=== PATIENT | male | born 1960 | race Caucasian/White ===

== ENCOUNTER → 2017-03-19 | Outpatient (CLI) | payer OTHER ==
--- NOTE | 2017-03-19 15:37 | XR ---
EXAMINATION TYPE: XR Hip Complete LT DATE OF EXAM: 03/19/2017 COMPARISON: NONE HISTORY: Contusion pain TECHNIQUE: 2 view left hip FINDINGS: There is loss of the joint space. Increased sclerosis along the acetabulum. There may be so me lateral subluxation of the humerus. This appearance may be related to the deformity of the femoral head with spurring. No acute fractures evident. IMPRESSION: 1. Advanced osteoarthritic degenerative change with loss of the joint space and sclerosis of the caleb tabulum. 2. No acute osseous abnormality evident
--- NOTE | 2017-03-19 15:38 | XR ---
EXAMINATION TYPE: XR lumbar spine 2 or 3V DATE OF EXAM: 03/19/2017 CLINICAL HISTORY: Fall, pain TECHNIQUE: Frontal, lateral, and sacral base views. COMPARISON: None FINDINGS: There 5 lumbar-type vertebral bodies. Pedicles are intact. Disc heights are preserved. Vert ebral body heights are preserved. Alignment is normal. IMPRESSION: No acute fracture or dislocation is seen in the lumbar spine.
--- NOTE | 2017-03-19 15:39 | XR ---
EXAMINATION TYPE: XR sacrum coccyx DATE OF EXAM: 03/19/2017 COMPARISON: NONE HISTORY: Fall contusion pain TECHNIQUE: Three-view sacrum and coccyx FINDINGS: Sacroiliac joints are intact. Sacrum appears intact. Coccyx appears intact. Multiple phlebo liths are evident within the lower pelvis. IMPRESSION: 1. No acute abnormality sacrum and coccyx.
== END ==
LOC: RADXRMAIN 15:00
PROVIDERS: ATTEND Emergency Medicine
DX: S30.0XXA Contusion of lower back and pelvis, initial encounter (principal)
CPT/HCPCS: 72100; 72220; 73502

== ENCOUNTER → 2017-03-26 | Outpatient (CLI) | payer OTHER ==
--- NOTE | 2017-03-26 15:08 | XR ---
EXAMINATION TYPE: XR cervical spine comp DATE OF EXAM: 03/26/2017 COMPARISON: NONE HISTORY: Pain TECHNIQUE: Four views are submitted. FINDINGS: The odontoid is intact. There are no compression deformities. The prevertebral soft tissue structur es are within normal limits. Hypertrophic and degenerative change of the spine noted. Severe changes at C3-4, C5-6 and C6-C7. Multilevel facet arthropathy. IMPRESSION: 1. Loss of the normal cervical lordosis with severe multilevel degenerative disc disease..
== END | disposition home or self-care (01) ==
LOC: RADXRMAIN 14:43
PROVIDERS: ATTEND Emergency Medicine
DX: S30.0XXD Contusion of lower back and pelvis, subsequent encounter (principal); M50.30 Other cervical disc degeneration, unspecified cervical region
CPT/HCPCS: 72050

== ENCOUNTER → 2017-07-14 | Outpatient (CLI) | payer BC ==
--- NOTE | 2017-07-14 18:30 | XR ---
EXAMINATION TYPE: XR chest 2V DATE OF EXAM: 07/14/2017 COMPARISON: NONE HISTORY: Cough, R05 TECHNIQUE: Frontal and lateral views of the chest are obtained. FINDINGS: There is no focal air space opacity, pleural effusion, or pneumothorax seen. The cardiac silhouette size is within normal limits. Bronchial wall thickening is suspected. Linear areas of incr eased attenuation likely reflects scarring in the left lower lobe. Prominent lung volume could be ind icative of underlying COPD. Postop changes are noted in the left shoulder. The osseous structures ar e intact. IMPRESSION: Correlate for bronchitis, reactive airways disease, follow-up as indicated.
== END | disposition home or self-care (01) ==
LOC: RADXRMAIN 16:34
PROVIDERS: ATTEND Physician Assistant
DX: R05 Cough (principal)
CPT/HCPCS: 71046

== ENCOUNTER → 2017-07-26 | Outpatient (CLI) | payer BC ==
--- NOTE | 2017-07-26 13:17 | XR ---
EXAMINATION TYPE: XR foot complete LT DATE OF EXAM: 07/26/2017 CLINICAL HISTORY: Pain for 2 months with no known injury. History of osteoarthritis. TECHNIQUE: Frontal, lateral, and oblique images of the left foot are obtained. COMPARISON: None FINDINGS: There is no acute fracture/dislocation evident in the left foot. The joint spaces in the left foot appear mildly narrowed at the distal interphalangeal joints with small marginal osteophytes . Very small plantar enthesophyte is noted. The overlying soft tissue appears unremarkable. IMPRESSION: There is no acute fracture or dislocation in the left foot. Mild forefoot arthropathy an d very small plantar enthesophyte/heel spur.
== END | disposition home or self-care (01) ==
LOC: RADXRMAIN 11:13
PROVIDERS: ATTEND Physician Assistant
DX: M12.9 Arthropathy, unspecified (principal); N18.3 Chronic kidney disease, stage 3 (moderate); D63.1 Anemia in chronic kidney disease

== ENCOUNTER → 2017-08-09 | Outpatient (CLI) | payer BC ==
--- NOTE | 2017-08-10 11:35 | ECHOF ---
Referral Reason:I10 Hypertension MEASUREMENTS -------- HEIGHT: 165.1 cm WEIGHT: 83.0 kg BP: 155/88 IVSd: 1.1 cm (0.6 - 1.1) LVIDd: 3.7 cm (3.9 - 5.3) LVPWd: 1.2 cm (0.6 - 1.1) IVSs: 1.7 cm LVIDs: 2.6 cm LVPWs: 1.7 cm LAESV Index (A-L): 25.02 ml/m Ao Diam: 2.9 cm (2.0 - 3.7) AV Cusp: 1.9 cm (1.5 - 2.6) LA Diam: 3.7 cm (2.7 - 3.8) MV EXCURSION: 16.312 mm (> 18.000) MV EF SLOPE: 134 mm/s (70 - 150) EPSS: 0.6 cm MV E Kai: 0.81 m/s MV DecT: 218 ms MV A Kai: 0.79 m/s MV E/A Ratio: 1.03 RAP: 5.00 mmHg RVSP: 23.88 mmHg FINDINGS -------- This was a technically good study. The left ventricular size is normal. There is borderline concentric left ventricular hypertrophy. Overall left ventricular systolic function is normal with, an EF between 55 - 60 %. The right ventricle is normal in size and function. The left atrium is normal in size. The right atrium is normal in size. The aortic valve is trileaflet, and appears structurally normal. No aortic stenosis or regurgitation. There is trace mitral regurgitation. Mild tricuspid regurgitation present. The right ventricular systolic pressure, as measured by Doppl er, is 23.88mmHg. Pulmonic valve appears structurally normal. The aortic root size is normal. Normal inferior vena cava with normal inspiratory collapse consistent with estimated right atrial pre ssure of 5 mmHg. There is a trivial pericardial effusion present. CONCLUSIONS -------- 1. This was a technically good study. 2. The left ventricular size is normal. 3. There is borderline concentric left ventricular hypertrophy. 4. Overall left ventricular systolic function is normal with, an EF between 55 - 60 %. 5. The right ventricle is normal in size and function. 6. The left atrium is normal in size. 7. The right atrium is normal in size. 8. The aortic valve is trileaflet, and appears structurally normal. No aortic stenosis or regurgitati on. 9. There is trace mitral regurgitation. 10. Mild tricuspid regurgitation present. 11. The right ventricular systolic pressure, as measured by Doppler, is 23.88mmHg. 12. Pulmonic valve appears structurally normal. 13. The aortic root size is normal. 14. Normal inferior vena cava with normal inspiratory collapse consistent with estimated right atrial pressure of 5 mmHg. 15. There is a trivial pericardial effusion present. CERTIFIED PEER SPECIALIST: Tammy Avelar RDCS
== END | disposition home or self-care (01) ==
LOC: RADECHMAIN 12:59
PROVIDERS: ATTEND Family Medicine
DX: I07.1 Rheumatic tricuspid insufficiency (principal); I31.3 Pericardial effusion (noninflammatory); I10 Essential (primary) hypertension
CPT/HCPCS: 93306

== ENCOUNTER 2017-08-24 07:56 | Day surgery (SDC) | payer BC ==
[2017-08-23 11:39] VITALS: BMI 31.1
[~2017-08-24 07:56] MED LIST: LACTATED RINGERS 1,000 ML IV SCH; LIDOCAINE 1% 20 ML VIAL (10MG/ML) FOR IV START INTRADERMA PRN; MIDAZOLAM 2 MG/2 ML VIAL IV PRN
[2017-08-24 09:12] VITALS: TEMP 98
[2017-08-24] MEDS ORDERED: PROPOFOL 10 MG/ML 20 ML VIAL IV ONE (09:22)
[2017-08-24] MEDS ORDERED: LIDOCAINE 1% INJ 10MG/ML (20 ML MDV) ONE (09:22)
[2017-08-24] MEDS ORDERED: GLYCOPYRROLATE 0.2 MG/ML 2 ML VIAL ONE (09:22)
--- NOTE | 2017-08-24 09:51 | P.PCN ---
Date of Procedure: 08/24/17 Preoperative Diagnosis: Blood per rectum, abdominal pain Postoperative Diagnosis: Internal hemorrhoids, external hemorrhoids Procedure(s) Performed: Colonoscopy Anesthesia: MAC Surgeon: Renate Sierra Estimated Blood Loss (ml): 0 IV fluids (ml): 300 Pathology: none sent Condition: stable Disposition: PACU Indications for Procedure: Red blood per rectum, abdominal pain Operative Findings: Internal/external hemorrhoids Description of Procedure: Patient was taken to the endoscopy suite and following sedation he was placed in the left lateral decubitus position. Prior to the colonoscopy and EGD was performed. After the patient was placed in the left lateral decubitus position a rectal exam was performed. Patient was noted to have an external right lateral hemorrhoidal complex. No masses good sphincter tone. Colonoscope was passed through the anus into the rectum. Was passed through the sigmoid colon up to the splenic flexure. Was passed through the transverse colon hepatic flexure right colon down to the area of the cecum. Circumferential observation of the mucosa did not reveal any lesions of concern in the cecum or right colon. No lesions of concern in the transverse colon. No lesions of concern in the left colon beginning of some diverticuli in the sigmoid colon. Scope was brought down to the rectum where it was retroflexed internal hemorrhoids identified. Impression/plan: 1. Beginning of diverticuli 2. Internal/external hemorrhoids Plan: 1. Conservative management of diverticuli 2. Conservative management of hemorrhoids 3. Repeat scope 7-10 years, recommended yearly rectal exam with Hemoccult testing and if any symptoms or changes repeat colonoscopy sooner
--- NOTE | 2017-08-24 09:53 | P.DS ---
Providers Attending physician: Ryan Maya Primary care physician: Stated None Plan - Discharge Summary New Discharge Prescriptions: No Action Wendell-3 Fatty Acids [Wendell-3] 1,000 mg PO DAILY Cholecalciferol [Vitamin D3] 1,000 unit PO DAILY Atorvastatin [Lipitor] 20 mg PO HS Tadalafil [Cialis] 5 mg PO DAILY Citalopram Hydrobromide [Citalopram HBr] 20 mg PO QAM traZODone HCL 50 mg PO HS Wendell Red 500 mg PO DAILY Albuterol Sulfate [Proair Hfa] 1 - 2 puff INHALATION Q6HR PRN PRN Reason: sob Discharge Medication List Atorvastatin [Lipitor] 20 mg PO HS 03/04/16 [History] Cholecalciferol [Vitamin D3] 1,000 unit PO DAILY 03/04/16 [History] Wendell-3 Fatty Acids [Wendell-3] 1,000 mg PO DAILY 03/04/16 [History] Albuterol Sulfate [Proair Hfa] 1 - 2 puff INHALATION Q6HR PRN 08/23/17 [History] Citalopram Hydrobromide [Citalopram HBr] 20 mg PO QAM 08/23/17 [History] Wendell Red 500 mg PO DAILY 08/23/17 [History] Tadalafil [Cialis] 5 mg PO DAILY 08/23/17 [History] traZODone HCL 50 mg PO HS 08/23/17 [History] Follow up Appointment(s)/Referral(s): Renate Sierra MD [STAFF PHYSICIAN] - 1 Week Activity/Diet/Wound Care/Special Instructions: Do not drive today Discharge Disposition: HOME SELF-CARE
[2017-08-24 10:07] VITALS: BP 136/83; PULSE 76; RESP 16
--- NOTE | 2017-08-24 11:40 | P.PCN ---
Date of Procedure: 08/24/17 Procedure(s) Performed: Procedure: Esophagogastroduodenoscopy and biopsy. Preoperative diagnosis: Epigastric pain and rectal bleeding. Postoperative diagnosis: 1. Small sliding hiatal hernia with low-grade distal esophagitis. 2. Mild gastritis and duodenitis. 3. Biopsies obtained from the antrum and esophagus. Preparation sedation: Was provided by anesthesia. Brief clinical history: The patient is a 57-year-old male who was scheduled for further evaluation of epigastric pain and rectal bleeding. His colonoscopy will be performed by Dr. Richie Rivera to follow this examination of his upper GI tract. He has been experiencing epigastric pain and reported rectal bleeding as well. Procedure: With the patient on his left lateral decubitus position and after informed consent and adequate sedation, I passed the Olympus-GIF 160 video upper endoscope through the cricopharyngeus down the esophagus. GE junction was around 41 cm from the incisors and there was a small sliding hiatal hernia. The distal esophagus showed minimal erythema but no obvious erosions. There were no ulcers, strictures or Moncada's esophagus. The endoscope was then passed into the stomach which was insufflated with air and inspected in detail including the retroflex view in the cardia. There was some mottling and erythema in the antrum but no ulcers or erosions. Pyloric channel did not show any ulcers. Duodenal bulb showed minimal erythema and minimal friability but no ulcers or erosions. Post bulbar area and descending duodenum appeared within normal limits. I obtained biopsies from the antrum and esophagus then the endoscope was withdrawn. The patient tolerated the procedure well. Plan: We will await pathology results. Further plans will be made based on his course and the findings on his colonoscopy later today.
== END 2017-08-24 10:23 | disposition home or self-care (01) ==
LOC: ORWHC2ENDO 07:56
DX: K29.50 Unspecified chronic gastritis without bleeding (principal); K44.9 Diaphragmatic hernia without obstruction or gangrene; K64.4 Residual hemorrhoidal skin tags; K64.8 Other hemorrhoids; Z86.010 Personal history of colon polyps; K20.9 Esophagitis, unspecified; K29.80 Duodenitis without bleeding; E78.5 Hyperlipidemia, unspecified; G47.33 Obstructive sleep apnea (adult) (pediatric); J42 Unspecified chronic bronchitis; Z79.899 Other long term (current) drug therapy; Z88.8 Allergy status to other drugs, medicaments and biological substances
CPT/HCPCS: 88305; 45378; 43239; J2001; J2704

== ENCOUNTER → 2017-08-27 | Outpatient (CLI) | payer BC ==
--- NOTE | 2017-08-27 08:18 | US ---
EXAMINATION TYPE: US gallbladder DATE OF EXAM: 08/27/2017 COMPARISON: NONE CLINICAL HISTORY: R10.9 Abdominal pain. EXAM MEASUREMENTS: Liver Length: 16.2 cm Gallbladder Wall: 0.1 cm CBD: 0.4 cm Right Kidney: 10.8 x 5.1 x 5.1 cm Pancreas: Obscured by bowel gas Liver: upper limits of normal in size, left lobe cyst measuring 1.3 x 1.1 x 1.1cm Gallbladder: wnl Evidence for sonographic Reed's sign: no CBD: wnl Right Kidney: No hydronephrosis or masses seen Pancreas is obscured by overlying bowel gas. There may be trace ascites near superior Paddock margin and intrahepatic portion of IVC on initial images. Visualized liver is slightly heterogeneous. Techno logist collins 1.3 cm simple appearing thin-walled cyst left hepatic dome. IMPRESSION: No gallstones or ultrasound evidence for acute cholecystitis.
== END ==
LOC: RADUSWWP 06:50
PROVIDERS: ATTEND Surgery
DX: R10.9 Unspecified abdominal pain (principal)
CPT/HCPCS: 76705

== ENCOUNTER 2017-11-01 11:45 | Emergency (ER) | payer BC, OTHER ==
--- NOTE | 2017-11-01 13:43 | ED ---
General Adult HPI - General Chief complaint: Extremity Injury, Upper Stated complaint: RT ARM PAIN AND BRUISING Time Seen by Provider: 11/01/17 12:37 Source: patient, RN notes reviewed Mode of arrival: ambulatory Limitations: no limitations - History of Present Illness Initial comments: 57-year-old male presents to the emergency department for a chief complaint of right upper extremity pain times one month. Patient states he has had shoulder pain on and off for about one month. Patient states that about 3 days ago he was playing a game where he was tossing a beanbag underhand and had a releasing sensation in his right upper arm. Patient states that since that time the right arm has bruised. Patient states the pain has actually resolved in his shoulder since that time. Patient states his biceps muscle seems prominent. Patient denies any other injuries or falls.Patient has no other complaints at this time including shortness of breath, chest pain, abdominal pain, nausea or vomiting, headache, or visual changes. - Related Data Home Medications Medication Instructions Recorded Confirmed Cholecalciferol [Vitamin D3] 5,000 unit PO DAILY 03/04/16 11/01/17 [place]-3 Fatty Acids [[place]-3] 1,000 mg PO DAILY 03/04/16 11/01/17 Citalopram Hydrobromide 20 mg PO QAM 08/23/17 11/01/17 [Citalopram HBr] Tadalafil [Cialis] 5 mg PO DAILY 08/23/17 11/01/17 traZODone HCL 50 mg PO HS 08/23/17 11/01/17 Vitamin B Complex 1 cap PO DAILY 11/01/17 11/01/17 Previous Rx's Medication Instructions Recorded Ibuprofen [Motrin] 600 mg PO Q6HR PRN #20 tab 11/01/17 Allergies Allergy/AdvReac Type Severity Reaction Status Date / Time pseudoephedrine Allergy nervousness Verified 11/01/17 12:41 Review of Systems ROS Statement: Those systems with pertinent positive or pertinent negative responses have been documented in the HPI. ROS Other: All systems not noted in ROS Statement are negative. Past Medical History Past Medical History: GERD/Reflux, Hyperlipidemia, Sleep Apnea/CPAP/BIPAP Additional Past Medical History / Comment(s): chronic cough after eating, stabbing pain in abdomen with occas bright red bleeding on outer stools,uses cpap,skin irritation to groin,fungal infection to toenail History of Any Multi-Drug Resistant Organisms: None Reported Past Surgical History: Orthopedic Surgery Additional Past Surgical History / Comment(s): pin lt shoulder Past Anesthesia/Blood Transfusion Reactions: No Reported Reaction Past Psychological History: No Psychological Hx Reported Smoking Status: Never smoker - Past Family History Mother Family Medical History: No Reported History General Exam Limitations: no limitations General appearance: alert, in no apparent distress Head exam: Present: atraumatic, normocephalic, normal inspection Eye exam: Present: normal appearance, PERRL, EOMI. Absent: scleral icterus, conjunctival injection, periorbital swelling ENT exam: Present: normal exam, mucous membranes moist Neck exam: Present: normal inspection, full ROM. Absent: tenderness, meningismus, lymphadenopathy Respiratory exam: Present: normal lung sounds bilaterally. Absent: respiratory distress, wheezes, rales, rhonchi, stridor Cardiovascular Exam: Present: regular rate, normal rhythm, normal heart sounds. Absent: systolic murmur, diastolic murmur, rubs, gallop, clicks Extremities exam: Present: full ROM (Patient has full flexion and extension of the right elbow. Patient has full abduction and flexion of the right shoulder. ), tenderness (Patient has tenderness to the medial bicep area of the right upper extremity. No tenderness in the right shoulder or right elbow. No tenderness to the R AC joint. No tenderness in the wrist or hand.), normal capillary refill (Refill less than 2 seconds and pedal pulse 2+ in the right upper extremity.), joint swelling (Patient does have significant ecchymosis noted on the right biceps area extending down into the forearm. Patient does have prominence of the right bicep.), other (Sensation intact in the right upper extremity.) Course Vital Signs 11/01/17 12:38 Temperature 97.9 F Pulse Rate 79 Respiratory 18 Rate Blood Pressure 155/93 O2 Sat by Pulse 97 Oximetry Medical Decision Making - Medical Decision Making 57-year-old male presents to the emergency department for a chief complaint of right upper extremity pain times one month. Patient has had shoulder pain on and off for the past month. Patient was tossing a beanbag 3 days ago when he felt a release in his right upper arm. Patient states the pain is actually improved in his shoulder but he has had increasing bruising down the right arm. Patient is concerned for a tendon rupture. On exam patient does have a prominent biceps muscle. Neurovascular intact in the right upper extremity. Mild tenderness to the right bicep area. No tenderness in the right shoulder. Patient has full range of motion of the elbow and shoulder in the right upper extremity. Right upper extremity ultrasound negative for DVT. No suspicious hematoma evident. X-ray of the right shoulder shows no acute fractures evident. The acromioclavicular junction is somewhat widened on 1 image. Acromioclavicular joint separation could be considered. No depression of the distal acromion is evident in relation to the clavicle. Patient was put in an arm sling. He will follow up with orthopedics for possible AC joint separation as well as possible biceps tendon rupture. He will take Motrin for pain. He will return to the emergency department if he has any worsening symptoms. Disposition Clinical Impression: Arm pain, right, Acromioclavicular joint separation Disposition: HOME SELF-CARE Condition: Good Instructions: Tendon Rupture (ED), Shoulder Pain (ED) Additional Instructions: Please use arm sling until you see orthopedics. Please take Motrin for pain. Make sure to do range of motion exercises with the right shoulder so that it does not freeze up. Follow-up with orthopedics in one to 2 days for possible acromioclavicular joint separation as well as possible eye sepsis tendon rupture. Return to the emergency department if you've any worsening symptoms. Prescriptions: Ibuprofen [Motrin] 600 mg PO Q6HR PRN #20 tab PRN Reason: Pain Is patient prescribed a controlled substance at d/c from ED?: No Referrals: Ernst Quiroz MD [Primary Care Provider] - 1-2 days Bijan Reed MD [STAFF PHYSICIAN] - 1-2 days Time of Disposition: 14:16
--- NOTE | 2017-11-01 13:48 | US ---
EXAMINATION TYPE: US venous doppler duplex UE RT DATE OF EXAM: 11/01/2017 COMPARISON: NONE CLINICAL HISTORY: r/o clot, poss tendon rupture. Right upper arm bruising . SIDE PERFORMED: right Right Arm: Negative for DVT IMPRESSION: 1. Right upper extremity ultrasound negative for deep venous thrombosis. 2. No suspicious hematoma evident.
--- NOTE | 2017-11-01 13:58 | XR ---
EXAMINATION TYPE: XR shoulder complete RT DATE OF EXAM: 11/01/2017 COMPARISON: NONE HISTORY: Pain TECHNIQUE: Shoulder examined in 3 FINDINGS: The humeral head articulates with the glenoid. The acromioclavicular junction is somewhat widened on one image compared to the second image there is a 1.3 cm. Acromioclavicular joint separation could be considered. No depression of the distal acromi on is evident in relation to the clavicle. No acute fractures or dislocations are evident. A follow up study can be performed 7-10 days from acute trauma for continued pain. IMPRESSION: 1. No acute fractures evident. 2. Clinical consideration for acromioclavicular joint separation is recommended.
[2017-11-01 14:25] VITALS: BP 138/70; PULSE 72; RESP 16; TEMP 98.7
== END 2017-11-01 14:24 | disposition home or self-care (01) ==
LOC: EC 11:45
DX: S43.101A Unspecified dislocation of right acromioclavicular joint, initial encounter (principal); G47.30 Sleep apnea, unspecified; Z99.89 Dependence on other enabling machines and devices; Z79.899 Other long term (current) drug therapy; Z88.8 Allergy status to other drugs, medicaments and biological substances; X50.9XXA Other and unspecified overexertion or strenuous movements or postures, initial encounter; Y92.89 Other specified places as the place of occurrence of the external cause
CPT/HCPCS: 99284

== ENCOUNTER → 2018-06-01 | Outpatient (CLI) | payer OTHER ==
--- NOTE | 2018-06-01 10:00 | XR ---
EXAMINATION TYPE: XR lumbar spine 2 or 3V DATE OF EXAM: 06/01/2018 CLINICAL HISTORY: Pain TECHNIQUE: Three views of the lumbar spine are submitted. COMPARISON: 03/19/2017 FINDINGS: There are 5 lumbar type vertebral bodies identified. The lumbar spine shows satisfactory alignment w ithout evidence of acute fracture or dislocation. Vertebral body heights are within normal limits. Mild degenerative disc space narrowing and spondylosis. Mild facet joint arthropathy detected. The o verlying soft tissue appears unremarkable. IMPRESSION: No acute fracture or dislocation is seen in the lumbar spine. ICD 10 NO FRACTURE, INITIAL EVALUATION
--- NOTE | 2018-06-01 10:11 | XR ---
EXAMINATION TYPE: XR Hip Bilateral Complete DATE OF EXAM: 06/01/2018 CLINICAL HISTORY: pain TECHNIQUE: AP and frogleg views of the bilateral hips are obtained. COMPARISON: None. FINDINGS: There is no acute fracture/dislocation evident. [id number] joint space narrowing rig ht hip joint. Severe degenerative narrowing left hip joint space. Underlying subchondral sclerosis an d cystic change. Spur formation noted. The overlying soft tissue appears unremarkable. IMPRESSION: 1. There is no acute fracture or dislocation. ICD 10 NO FRACTURE, INITIAL EVALUATION
== END | disposition home or self-care (01) ==
LOC: RADXRMAIN 08:38
PROVIDERS: ATTEND Family Medicine
DX: M54.32 Sciatica, left side (principal); M25.552 Pain in left hip
CPT/HCPCS: 72100; 73521

== ENCOUNTER → 2018-07-21 | Outpatient (CLI) | payer OTHER ==
--- NOTE | 2018-07-21 10:45 | XR ---
EXAMINATION TYPE: XR knee complete bilateral DATE OF EXAM: 07/21/2018 CLINICAL HISTORY: Bilateral knee pain. TECHNIQUE: Three views of the bilateral knees are obtained. COMPARISON: None. FINDINGS: There is no acute fracture/dislocation evident in either knee. Both knees show lateral tib iofemoral compartment narrowing mild to moderate slightly more prominent in the left knee. There is r elative preservation of medial tibiofemoral compartments bilaterally. There is mild patellofemoral co mpartment joint space loss and spurring bilaterally left slightly worse than right. Overlying soft ti ssue is unremarkable bilaterally. IMPRESSION: As above, left greater than right mild degenerative changes.
== END | disposition home or self-care (01) ==
LOC: RADXRMAIN 10:13
PROVIDERS: ATTEND Family Medicine
DX: M17.0 Bilateral primary osteoarthritis of knee (principal)

== ENCOUNTER → 2019-03-10 | Outpatient (CLI) | payer OTHER ==
[2019-03-10 15:33] LABS: ALT 57 U/L (21-72); AST 37 U/L (17-59); African American GFR (CKD) >90 (>60 ml/min/1.73 sqM); Alkaline Phosphatase 94 U/L (38-126); Anion Gap 10 mmol/L; Blood Urea Nitrogen 15 mg/dL (9-20); Calcium 10.4 mg/dL (8.4-10.2); Carbon Dioxide 25 mmol/L (22-30); Chloride 105 mmol/L (98-107); Glucose 91 mg/dL (74-99); Sodium 140 mmol/L (137-145); Total Bilirubin 0.8 mg/dL (0.2-1.3); Total Protein 8.1 g/dL (6.3-8.2)
[2019-03-10 15:34] LABS: Appearance,Urine Clear (Clear); Bilirubin,Urine Negative (Negative); Blood,Urine Negative (Negative); Color,Urine Yellow; Glucose,Urine (UA) Negative (Negative); Ketones,Urine Negative (Negative); Leukocyte Esterase,Urine Negative (Negative); Nitrite,Urine Negative (Negative); PH, Urine 5.5 (5.0-8.0); Protein,Urine Negative (Negative); Specific Gravity,Urine 1.017 (1.001-1.035); Urobilinogen,Urine <2.0 mg/dL (<2.0)
[2019-03-10 15:36] LABS: Basophils % (A) 0 %; Eosinophils # (A) 0.1 k/uL (0-0.7); Eosinophils % (A) 1 %; HCT 43.9 % (39.0-53.0); HGB 15.2 gm/dL (13.0-17.5); Lymphocytes # (A) 2.4 k/uL (1.0-4.8); Lymphocytes % (A) 25 %; MCH 28.3 pg (25.0-35.0); MCHC 34.7 g/dL (31.0-37.0); MCV 81.5 fL (80.0-100.0); Mean Platelet Volume 6.4; Monocytes # (A) 0.6 k/uL (0-1.0); Monocytes % (A) 6 %; Neutrophils # (A) 6.4 k/uL (1.3-7.7); Neutrophils % (A) 66 %; Platelet Count 316 k/uL (150-450); RBC 5.39 m/uL (4.30-5.90); RDW 13.6 % (11.5-15.5); WBC 9.6 k/uL (3.8-10.6)
[2019-03-10 15:47] LABS: INR 0.9 (<1.2); Partial Thromboplastin Time 25.3 sec (22.0-30.0); Prothrombin Time 9.8 sec (9.0-12.0)
== END | disposition home or self-care (01) ==
LOC: LABPAT 14:20
PROVIDERS: ATTEND Orthopaedic Surgery
DX: Z01.812 Encounter for preprocedural laboratory examination (principal)
CPT/HCPCS: 36415; 80053; 81003; 85025; 85610; 85730; 87070

== ENCOUNTER → 2019-03-10 | Outpatient (CLI) | payer OTHER ==
[2019-03-10 23:19] LABS: Chol/HDL Ratio 6.15; LDL Cholesterol,Calculated 154.2 mg/dL (0.0-131.0); VLDL Calculation 46.8 mg/dL (5.00-40.00)
[2019-03-10 23:28] LABS: T4, Free (Free Thyroxine) 1.1 ng/dL (0.80-1.80)
== END | disposition home or self-care (01) ==
LOC: LABWHC1 14:23
PROVIDERS: ATTEND Family Medicine
DX: I10 Essential (primary) hypertension (principal)
CPT/HCPCS: 36415; 80061; 84439; 84443

== ENCOUNTER 2019-03-28 05:33 | Inpatient (IN) | payer OTHER ==
[2019-03-24 08:24] VITALS: BMI 33.3
[~2019-03-28 05:33] MED LIST changes: +ACETAMINOPHEN TAB 500 MG TAB PO ONE; +DEXAMETHASONE SOD PHOSPHATE 10 MG/ML 1 ML VIAL IV ONE; +GABAPENTIN 300 MG CAP PO ONE; +HYDROmorphone 0.5 MG/0.5 ML SYRINGE IVP PRN; -LACTATED RINGERS 1,000 ML IV SCH; -LIDOCAINE 1% 20 ML VIAL (10MG/ML) FOR IV START INTRADERMA PRN; +MELOXICAM 7.5 MG TAB PO ONE; +ONDANSETRON 4 MG/2 ML VIAL IVP ONE; +SCOPOLAMINE 1.5MG/72HR PATCH TRANSDERM ONE; +TRANEXAMIC ACID 1,000 MG in SODIUM CHLORIDE 0.9% 100 ML IVPB ONE
[2019-03-28] MEDS ORDERED: ROPIVACAINE 246.25 MG, EPINEPHrine 0.5 MG, KETOROLAC 30 MG, cloNIDine HCL/PF 80 MCG, WA... MISCELLANE ONE ×5 (06:00)
[2019-03-28] MEDS ORDERED: LIDOCAINE 1% 20 ML VIAL (10MG/ML) FOR IV START INTRADERMA ONE (06:30)
[2019-03-28] MEDS: LACTATED RINGERS 1,000 ML IV SCH (06:35)
[2019-03-28] MEDS ORDERED: MIDAZOLAM 2 MG/2 ML VIAL ONE (06:55)
[2019-03-28] MEDS ORDERED: HEPARIN SODIUM,PORCINE 10,000 UNIT/ML 1 ML VIAL ONE (06:55)
[2019-03-28] MEDS ORDERED: SODIUM CHLORIDE 0.9% 100 ML BAG ONE (06:55)
[2019-03-28] MEDS ORDERED: fentaNYL (PF) 50 MCG/ML 2 ML AMP ONE (06:55)
[2019-03-28] MEDS ORDERED: LACTATED RINGERS 1,000 ML BAG IV ONE (06:55)
[2019-03-28] MEDS ORDERED: TRANEXAMIC ACID 1,000 MG/10 ML VIAL ONE (06:55)
[2019-03-28] MEDS ORDERED: LIDOCAINE 1% INJ 10MG/ML (20 ML MDV) ONE (06:55)
[2019-03-28] MEDS ORDERED: PROPOFOL 10 MG/ML 20 ML VIAL IV ONE (06:55)
[2019-03-28] MEDS ORDERED: PHENYLEPHRINE-0.9% NACL SYG 1 MG/10 ML SYRINGE ONE (06:55)
[2019-03-28] MEDS ORDERED: ceFAZolin 3,000 MG in SODIUM CHLORIDE 0.9% IRRIGATIO 3,000 ML IRRIGATION ONE (07:00)
[2019-03-28] MEDS ORDERED: HYDROmorphone 0.5 MG/0.5 ML SYRINGE IVP PRN ×2 (07:02)
[2019-03-28] MEDS ORDERED: ONDANSETRON 4 MG/2 ML VIAL IVP PRN (07:02)
[2019-03-28] MEDS ORDERED: MAGNESIUM HYDROXIDE 2,400 MG/10 ML CUP PO PRN (07:02)
[2019-03-28] MEDS ORDERED: hydrOXYzine PAMOATE 25 MG CAP PO PRN (07:02)
[2019-03-28] MEDS ORDERED: DIAZEPAM 5 MG TAB PO PRN (07:02)
[2019-03-28] MEDS ORDERED: HYDROcodone/APAP 5-325MG 1 EACH TAB PO PRN ×2 (07:02)
[2019-03-28] MEDS ORDERED: NALOXONE 0.4 MG/ML 1 ML VIAL IV PRN (07:02)
[2019-03-28] MEDS ORDERED: HYDROmorphone 1 MG/ML 1 ML SYRINGE IVP PRN (07:02)
[2019-03-28] MEDS ORDERED: LACTATED RINGERS 1,000 ML IV ONE (08:22)
--- NOTE | 2019-03-28 08:33 | P.OP ---
Date of Procedure: 03/28/19 Preoperative Diagnosis: Severe osteoarthritis left hip Postoperative Diagnosis: Severe osteoarthritis left hip Procedure(s) Performed: Left total hip arthroplasty with a direct anterior approach Implants: Gallardo and nephew Polarstem size 5 standard Gallardo [employer] Nephew R3, 3 hole acetabular shell, 52 mm Gallardo [employer] Nephew reflection 6.5 mm cancellus screw, 20 mm 2 [employer]ardo [employer] Nephew R3, XLPE 20 acetabular liner Gallardo [employer] Nephew Oxinium femoral head 36 m, +4 All components were press-fit. The articulation is Oxinium on polyethylene. Anesthesia: spinal Surgeon: Ryan Bourne String Studies Director #1: Nora Ordoñez Estimated Blood Loss (ml): 150 (64 mL returned with Cell Saver) Pathology: other (Femoral head) Condition: stable Disposition: PACU Indications for Procedure: After failure of conservative treatment we discussed the surgical and nonsurgical treatment options at length. Patient wishes to proceed with a total hip arthroplasty with a direct anterior approach. Complications specific to this procedure were discussed at length, including but not limited to infection, leg length discrepancy, dislocation, and nerve injury. Patient is aware of all these complications and informed consent was obtained Operative Findings: The operative findings are consistent with severe osteoarthritis the left hip Description of Procedure: Patient was seen and evaluated in the preoperative area, consent was reviewed, and the surgical site was marked with a skin marker. Patient was then brought to the operating room and given prophylactic antibiotics intravenously. 1 g of Tranexamic acid was also given. A spinal anesthetic was administered by the anesthesia department. The patient was then placed on the [place] table with the bony prominences well-padded. The hip area was then prepped and draped in usual sterile fashion. A universal timeout was then performed, which confirmed the patient's name, surgical site, ALLERGIES, and procedure being performed. Next the incision site was located at 1 cm distal and 1 cm lateral to the anterior superior iliac spine. The skin and subcutaneous tissues were sharply incised. Incision was carefully dissected down to the fascia overlying the tensor fascia rama muscle. This fascia was then incised in line with the incision. Next, using blunt finger dissection, the tensor fascia rama muscle was dissected off its investing fascia. The muscle was then carefully retracted laterally with a cobra retractor over the lateral neck of the femur. Next, the circumflex vessels were identified and cauterized using the AquaMantis device. The anterior hip capsule was then exposed. The capsule was then opened and an inverted T fashion. Cobra retractors were then placed intracapsularly. The proximal femur was then visualized. The femoral neck was then osteotomized appropriate level above the lesser trochanter. Small amount of traction was placed with the Dallas table. A small wedge of bone was then removed from the remaining femoral head. Next, using a corkscrew femoral head was easily removed from the acetabulum. On gross visual inspection, the femoral head had complete loss of articular cartilage in multiple periarticular osteophytes. Attention was then turned to the acetabulum. the acetabulum was exposed and any remaining labrum was excised. Sequential reaming of the acetabulum was performed using fluoroscopic guidance. When the appropriate size was reached, a trial was then placed. The position and fit of the trial was checked with fluoroscopy. The trial was then removed. Then, using fluoroscopic guidance, the final implant was impacted at 20 of anteversion and 40 of abduction, and fully seated in the acetabulum. 2 screws were then placed in the acetabulum. Again fluoroscopy was used to check position of the screws. Next, the liner was then impacted, with a 20 elevated liner located in the anterior superior quadrant. Component locking was confirmed. Attention was then directed to the femur. With the aid of the Dallas table, the femur was externally rotated to approximately 130, extended, and abducted under the opposite leg. A side hook was then placed under the proximal femur, and the side hook elevator was used to elevate the proximal femur. Retractors were then placed. A capsular release was performed, as well as a release of the conjoined tendon, which afforded excellent visualization of the proximal femur. Next, a box osteotome was used to lateralize the proximal femur. A presser hand was then used to locate the femoral canal. Sequential broaching was then performed with appropriate size which afforded excellent fixation in the proximal femur. A trial was then placed with appropriate head and neck, and the hip was gently reduced with the aid of the Dallas table. Fluoroscopy was then used to check position of the components, as well as to ensure equal leg lengths. The hip was then gently dislocated and the trials were then removed. Final implants were then impacted and the hip was again reduced. Final fluoroscopic x-rays confirmed that the components were in anatomic position, as well as equal leg lengths. The hip was also taken through range of motion, and found to be stable. The hip was then copiously irrigated with antibiotic solution with pulsatile lavage. The hip was then irrigated with Irrisept solution. The soft tissues were then injected with a ropivacaine solution, which consisted of 246.25 mg of ropivacaine, 0.5 mg of epinephrine, 30 mg of Toradol, 80 g of clonidine, and 48.45 mL of sterile water, for a total of 100 mL of fluid injected. A second dose of 1 g of Tranexamic acid was also given. the fascia was then closed with 2-0 strata fix suture. The subcutaneous tissue was closed with 3-0 Vicryl. The subcuticular tissue was closed with 3-0 strata fix suture. The skin was then closed with Dermabond glue and a sterile silver dressing. The patient was then transferred to the recovery room in stable condition. The electrical assistant ZURDO Wright was required due to the complexity of surgery, and the need for skilled assistant shift supervisor for positioning, draping, exposure, retraction, and closure of the wound.
--- NOTE | 2019-03-28 09:07 | XR ---
EXAMINATION TYPE: XR Hip Limited LT DATE OF EXAM: 03/28/2019 CLINICAL HISTORY: Left hip pain and osteoarthritis. TECHNIQUE: Single AP portable view of left hip is obtained immediately postoperatively. COMPARISON: None. FINDINGS: Metallic hardware from left hip arthroplasty is seen and appears satisfactory in alignment and position. There is evidence of recent surgery with subcutaneous gas noted laterally. IMPRESSION: Metallic hardware from left hip arthroplasty is satisfactory in position.
--- NOTE | 2019-03-28 10:52 | XR ---
EXAMINATION TYPE: XR Hip Limited RT, FL guidance operating room DATE OF EXAM: 03/28/2019 CLINICAL HISTORY: Fluoroscopic documentation during right hip arthroplasty. TECHNIQUE: Fluoroscopy. COMPARISON: None. FINDINGS: Fluoroscopic guidance was provided during pain relief procedure performed by Dr. Bourne . A total of 48 seconds of fluoroscopic time was utilized during the procedure and two spot images a re acquired. IMPRESSION: As Above.
--- NOTE | 2019-03-28 11:17 | P.CONS ---
History of Present Illness - History of Present Illness 59-year-old male postoperative for left osteoarthritis left hip arthroplasty. Patient is a history of hypertension hyperlipidemia sleep apnea uses CPAP and GERD. Patient comfortable at this time no complaints Review of Systems Musculoskeletal: left: hip pain Past Medical History Past Medical History: Chest Pain / Angina, GERD/Reflux, Hyperlipidemia, Osteoarthritis (OA), Pneumonia, Prostate Disorder, Sleep Apnea/CPAP/BIPAP Additional Past Medical History / Comment(s): "rapid heartbeat", hiatal hernia, hemorrhoids, gets a rash on and off on testicles-"from moisture", "left knee pain-walks bowlegged", bisi carpal tunnel History of Any Multi-Drug Resistant Organisms: None Reported Past Surgical History: Orthopedic Surgery Additional Past Surgical History / Comment(s): surgery for dislocated left shouldrer with pin, Past Anesthesia/Blood Transfusion Reactions: No Reported Reaction Additional Past Anesthesia/Blood Transfusion Reaction / Comm: unsure of family hx Smoking Status: Never smoker - Past Family History Mother Family Medical History: No Reported History Medications and Allergies Home Medications Medication Instructions Recorded Confirmed Type Whitmer-3 Fatty Acids [Whitmer-3] 1,000 mg PO DAILY 03/04/16 03/24/19 History Citalopram Hydrobromide 20 mg PO QAM 08/23/17 03/24/19 History [Citalopram HBr] Ibuprofen [Motrin] 600 mg PO Q6HR PRN #20 tab 11/01/17 03/24/19 Rx Hydrocortisone Cream(Dose Unko 1 applicate TOPICAL DIRECTED PRN 03/24/19 03/24/19 History Metoprolol Tartrate [Lopressor] 25 mg PO BID 03/24/19 03/24/19 History Omeprazole 40 mg PO DAILY 03/24/19 03/24/19 History Allergies Allergy/AdvReac Type Severity Reaction Status Date / Time pseudoephedrine Allergy nervousness Verified 03/28/19 05:55 Physical Exam Vitals: Vital Signs Temp Pulse Pulse Resp BP Pulse Ox 03/28/19 09:16 73 16 113/69 95 03/28/19 09:01 74 18 131/73 94 L 03/28/19 08:46 74 18 111/71 97 03/28/19 08:35 97.2 F L 86 12 115/69 96 03/28/19 06:17 98.1 F 68 16 162/74 98 Intake and Output 03/27/19 03/28/19 03/28/19 22:59 06:59 14:59 Intake Total 100 1151 Output Total 150 Balance 100 1001 Intake: IV 100 1151 Output: Estimated Blood Loss 150 Other: Weight 89.811 kg - Constitutional General appearance: mild distress - EENT Eyes: PERRLA - Respiratory Respiratory: bilateral: CTA - Cardiovascular Rhythm: regular - Gastrointestinal General gastrointestinal: normal bowel sounds, soft - Integumentary Integumentary: normal - Neurologic Neurologic: CNII-XII intact - Psychiatric Psychiatric: A&O x's 3, appropriate affect, intact judgment & insight Assessment and Plan Plan: Assessment Osteoarthritis left hip post left hip arthroplasty History of hypertension Hyperlipidemia Depression GERD Sleep apnea with CPAP use Plan We'll monitor for changes in condition
[2019-03-28] MEDS: SODIUM CHLORIDE 0.9% 1,000 ML IV SCH ×2 (17:14→20:01)
[2019-03-28] MEDS: ASPIRIN 325 MG TAB PO SCH (20:00)
[2019-03-28] MEDS: METOPROLOL TARTRATE 25 MG TAB PO SCH (20:00)
[2019-03-28] MEDS ORDERED: SENNOSIDES-DOCUSATE SODIUM 1 EACH TAB PO SCH (21:00)
[2019-03-29] MEDS: LACTATED RINGERS 1,000 ML IV SCH (03:48)
[2019-03-29] MEDS: METOPROLOL TARTRATE 25 MG TAB PO SCH (07:12)
[2019-03-29] MEDS: ASPIRIN 325 MG TAB PO SCH (07:13)
[2019-03-29] MEDS ORDERED: PANTOPRAZOLE 40 MG TABLET PO SCH (07:30)
[2019-03-29 08:09] VITALS: BP 113/73; PULSE 92; RESP 16; TEMP 98
[2019-03-29 08:30] LABS: Basophils # (A) 0.1 k/uL (0-0.2); Basophils % (A) 1 %; Eosinophils # (A) 0.1 k/uL (0-0.7); Eosinophils % (A) 1 %; HCT 34.6 % (39.0-53.0); Lymphocytes # (A) 2.4 k/uL (1.0-4.8); Lymphocytes % (A) 21 %; MCH 27.8 pg (25.0-35.0); MCHC 33.6 g/dL (31.0-37.0); MCV 82.5 fL (80.0-100.0); Mean Platelet Volume 7.7; Monocytes # (A) 0.9 k/uL (0-1.0); Monocytes % (A) 8 %; Neutrophils # (A) 7.7 k/uL (1.3-7.7); Neutrophils % (A) 68 %; Platelet Count 233 k/uL (150-450); RBC 4.19 m/uL (4.30-5.90); RDW 13.4 % (11.5-15.5); WBC 11.2 k/uL (3.8-10.6)
[2019-03-29 08:34] LABS: HGB 11.6 gm/dL (13.0-17.5)
--- NOTE | 2019-03-29 08:43 | P.DS ---
Providers Date of admission: 03/28/19 05:33 Expected date of discharge: 03/29/19 Attending physician: Ryan Bourne Consults: 03/28/19 07:02 Consult Physician Routine Consulting Provider: Ernst Quiroz Consult Reason/Comments: medical management Do you want consulting provider notified?: Yes Primary care physician: Ernst Quiroz - Discharge Diagnosis(es) (1) Osteoarthritis of left hip Current Visit: Yes Status: Acute (2) Status post total hip replacement, left Current Visit: Yes Status: Acute Hospital Course: This is a 59-year-old male with known history of degenerative arthritis of the left hip. The patient presents for evaluation. After discussion and consideration patient elects to proceed with total hip arthroplasty. The patient is seen preoperatively by Dr. Bourne and medically cleared for surgery by their primary care physician. Patient is admitted to [facility] on 03/28/2019 for total hip arthroplasty. The procedures performed without complication or sequelae. The patient is doing well postoperatively. Labs and vital signs are stable on day of discharge. On day of discharge patient's hip incision is healing well. There is minimal erythema. There is no drainage noted at this time. There is minimal soft tissue swelling to the hip and thigh. Patient has full foot and ankle motion without difficulty or pain. Calf is soft and nontender to palpation. Ne urovascular status to the left lower extremity is intact. Patient is discharged home in good condition. Opioid start talking form is reviewed and signed at patient bedside. Please see med rec for accurate list of home medications. Plan - Discharge Summary Discharge Rx Participant: No New Discharge Prescriptions: New Aspirin 325 mg PO BID #60 tab HYDROcodone/APAP 5-325MG [Media 5-325] 1 - 2 tab PO Q6HR PRN #56 tab PRN Reason: Pain Sennosides [Senokot] 1 tab PO BID #60 tablet No Action Vina-3 Fatty Acids [Vina-3] 1,000 mg PO DAILY Citalopram Hydrobromide [Citalopram HBr] 20 mg PO QAM Ibuprofen [Motrin] 600 mg PO Q6HR PRN #20 tab PRN Reason: Pain Metoprolol Tartrate [Lopressor] 25 mg PO BID Omeprazole 40 mg PO DAILY Hydrocortisone Cream(Dose Unko 1 applicate TOPICAL DIRECTED PRN PRN Reason: Rash Discharge Medication List Vina-3 Fatty Acids [Vina-3] 1,000 mg PO DAILY 03/04/16 [History] Citalopram Hydrobromide [Citalopram HBr] 20 mg PO QAM 08/23/17 [History] Ibuprofen [Motrin] 600 mg PO Q6HR PRN #20 tab 11/01/17 [Rx] Hydrocortisone Cream(Dose Unko 1 applicate TOPICAL DIRECTED PRN 03/24/19 [History] Metoprolol Tartrate [Lopressor] 25 mg PO BID 03/24/19 [History] Omeprazole 40 mg PO DAILY 03/24/19 [History] Aspirin 325 mg PO BID #60 tab 03/29/19 [Rx] HYDROcodone/APAP 5-325MG [Media 5-325] 1 - 2 tab PO Q6HR PRN #56 tab 03/29/19 [Rx] Sennosides [Senokot] 1 tab PO BID #60 tablet 03/29/19 [Rx] Follow up Appointment(s)/Referral(s): Ryan Bourne DO [Doctor of Osteopathic Medicine] - 2 Weeks Activity/Diet/Wound Care/Special Instructions: Weightbearing as tolerated with walker. Leave dressing intact. Dressing may be removed by home care nurse or by patient in 10 days. May shower with dressing on. Recommend use of compression stockings daily for at least 2 weeks during the day to help prevent swelling and blood clots. May remove at night before sleeping. Please follow-up with [facility] in 2 weeks and call with any questi ons or concerns, . Discharge Disposition: HOME WITH HOME HEALTH SERVICES
[2019-03-29] MEDS ORDERED: NON FORMULARY DRUG (Omega-3 Fatty Acids [Omega-3] 1,000 MG) PO SCH (09:00)
[2019-03-29] MEDS ORDERED: CITALOPRAM HYDROBROMIDE 20 MG TAB PO SCH (09:00)
[2019-03-29] MEDS ORDERED: MELOXICAM 7.5 MG TAB PO SCH (09:00)
--- NOTE | 2019-03-29 11:03 | P.PN ---
Subjective Patient resting in bed states he has pain control Objective - Vital Signs Vital signs: Vital Signs Temp 98.0 F 03/29/19 06:53 Pulse 92 03/29/19 06:53 Resp 16 03/29/19 06:53 BP 113/73 03/29/19 06:53 Pulse Ox 95 03/29/19 00:42 Intake & Output 03/28/19 03/29/19 03/29/19 18:59 06:59 18:59 Intake Total 1701 480 240 Output Total 850 250 Balance 851 230 240 Intake: IV 1151 Intake, IV Titration 300 Amount Sodium Chloride 0.9% 1, 300 000 ml @ 70 mls/hr IV . [id number] TEO Rx#:[id number] Oral 250 480 240 Output: Urine 700 250 Estimated Blood Loss 150 Other: Voiding Method Toilet Urinal # Voids 1 - Constitutional General appearance: Present: mild distress - EENT Eyes: Present: PERRLA Ears: bilateral: normal - Neck Neck: Present: normal ROM - Respiratory Respiratory: bilateral: CTA - Cardiovascular Rhythm: regular - Gastrointestinal General gastrointestinal: Present: soft - Integumentary Integumentary: Present: normal - Psychiatric Psychiatric: Present: A&O x's 3, appropriate affect, intact judgment & insight - Labs CBC & Chem 7: 03/29/19 06:45 Labs: Abnormal Lab Results - Last 24 Hours (Table) 03/29/19 Range/Units 06:45 WBC 11.2 H (3.8-10.6) k/uL RBC 4.19 L (4.30-5.90) m/uL Hgb 11.6 L D (13.0-17.5) gm/dL Hct 34.6 L (39.0-53.0) % Assessment and Plan Plan: Assessment Osteoarthritis left hip post left hip arthroplasty History of hyperlipidemia hypertension Depression GERD Sleep apnea with CPAP machine Plan Medically stable for discharge
== END 2019-03-29 12:55 | disposition home health service (06) | DRG 470 ==
LOC: 2ORMAIN 05:33 → 4SSUR 09:11
PROVIDERS: ADMIT Orthopaedic Surgery; ATTEND Orthopaedic Surgery
PROC: 0SRB06A Replacement of Left Hip Joint with Oxidized Zirconium on Polyethylene Synthetic Substitute, Uncemented, Open Approach (ICD-10-PCS; principal; 2019-03-28 07:00)
DX: M16.12 Unilateral primary osteoarthritis, left hip (principal); K21.9 Gastro-esophageal reflux disease without esophagitis; I10 Essential (primary) hypertension; G47.30 Sleep apnea, unspecified; F32.9 Major depressive disorder, single episode, unspecified; E78.5 Hyperlipidemia, unspecified; Z79.899 Other long term (current) drug therapy; Z99.89 Dependence on other enabling machines and devices; Z87.01 Personal history of pneumonia (recurrent); Z98.890 Other specified postprocedural states; Z88.8 Allergy status to other drugs, medicaments and biological substances
CPT/HCPCS: 73501; 85025; 86850; 86891; 86900; 86901; 88300

== ENCOUNTER → 2019-05-01 | Outpatient (CLI) | payer OTHER ==
--- NOTE | 2019-05-01 12:21 | FL ---
EXAMINATION TYPE: FL sniff test without CXR DATE OF EXAM: 05/01/2019 COMPARISON: 04/26/2019 HISTORY: 59-year-old male left diaphragmatic paralysis TECHNIQUE: Real-time fluoroscopy Fluoroscopy. Total fluoroscopy time: 49 seconds. Total images: 7 FINDINGS: Realtime fluoroscopy was utilized centered at the patient's diaphragm. There is elevation of the left hemidiaphragm. During quiet breathing and deep inspirations, there is delayed movement and overall decreased excursion of the left hemidiaphragm. During sniffing maneuver, there is davina paradoxical movement of the left hemidiaphragm. 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
== END | disposition home or self-care (01) ==
LOC: RADFLMAIN 09:25
PROVIDERS: ATTEND Internal Medicine
DX: J98.6 Disorders of diaphragm (principal)
CPT/HCPCS: 76000

== ENCOUNTER → 2019-09-22 | Outpatient (CLI) | payer OTHER | END | disposition home or self-care (01) | LOC: LABWHC1 11:31 | PROVIDERS: ATTEND Internal Medicine Interventional Cardiology | DX: Z11.59 Encounter for screening for other viral diseases (principal) | CPT/HCPCS: 87635 ==

== ENCOUNTER 2019-09-25 07:51 | Day surgery (SDC) | payer OTHER ==
[2019-09-21 12:11] VITALS: BMI 35.6
[~2019-09-25 07:51] MED LIST changes: -ACETAMINOPHEN TAB 500 MG TAB PO ONE; +ALPRAZolam 0.25 MG TAB PO PRN; +ALPRAZolam 0.5 MG TAB PO PRN; +ASPIRIN 325 MG TAB PO ONE; +ATORVASTATIN 80 MG TAB PO ONE; -DEXAMETHASONE SOD PHOSPHATE 10 MG/ML 1 ML VIAL IV ONE; -GABAPENTIN 300 MG CAP PO ONE; -HYDROmorphone 0.5 MG/0.5 ML SYRINGE IVP PRN; -MELOXICAM 7.5 MG TAB PO ONE; -MIDAZOLAM 2 MG/2 ML VIAL IV PRN; +NITROGLYCERIN SL TABS 0.4 MG TAB SUBLINGUAL PRN; -ONDANSETRON 4 MG/2 ML VIAL IVP ONE; -SCOPOLAMINE 1.5MG/72HR PATCH TRANSDERM ONE; +SODIUM CHLORIDE 0.9% 1,000 ML in EMPTY BAG 1 BAG IV ONE; -TRANEXAMIC ACID 1,000 MG in SODIUM CHLORIDE 0.9% 100 ML IVPB ONE
[2019-09-25] MEDS ORDERED: SODIUM CHLORIDE 0.9% 1,000 ML IV ONE (08:26)
[2019-09-25 08:29] VITALS: RESP 16; TEMP 98.5
[2019-09-25] MEDS ORDERED: MIDAZOLAM 2 MG/2 ML VIAL IV ONE (09:00)
[2019-09-25] MEDS ORDERED: LIDOCAINE 1% INJ 10MG/ML (20 ML MDV) SQ ONE (09:02)
[2019-09-25] MEDS ORDERED: VERAPAMIL SYRINGE (5 MG/10 ML) INTRAARTER ONE (09:05)
[2019-09-25] MEDS ORDERED: IOPAMIDOL-370 125ML BTL INJ ONE (09:16)
[2019-09-25] MEDS ORDERED: RX INFO: IV CONTRAST WAS GIVEN 1 EACH MISC MISCELLANE PRN (09:21)
--- NOTE | 2019-09-25 09:26 | P.PCN ---
Date of Procedure: 09/25/19 Operative Findings: CARDIAC CATHETERIZATION PERFORMING PHYSICIAN: Toro Lewis MD, RPVI PROCEDURE PERFORMED: 1. Selective right and left coronary angiogram 2. Left heart catheterization INDICATION: This is a pleasant 59-year-old gentleman who continues to have shortness of breath with exertion. The heart catheterization is to rule out severe underlying coronary artery disease behind the shortness of breath COMPLICATION: None APPROACH: Right radial artery LEVEL OF SEDATION: Moderate with sedation length of 20 minutes PROCEDURE DESCRIPTION: After obtaining an informed consent, the patient was brought to cardiac ammunition assembly i laborer. Local anesthesia was performed using lidocaine subcutaneously. The right radial artery was cannulated using Seldinger technique, the guidewire passed easily, following that we advanced a 5-Egyptian sheath dilator assembly, the wire and dilator were removed and sheath was flushed. Following that, 2 mg of verapamil along with 5000 unit heparin were given. Selective right and left coronary angiogram using a 6-Egyptian JR4 and JL 3.5 catheters. Following that we did left heart catheterization using 6-Egyptian pigtail catheter. The procedure was completed there was no complication. SELECTIVE CORONARY ANGIOGRAM: The right coronary artery: Is a large caliber vessel and a dominant vessel. Its angiographically normal. Distally bifurcates into PDA and PLV branches and both appeared to be angiographically normal Left main: Is angiographically normal. Bifurcates into also he excellent LAD The left circumflex: Is a large caliber vessel and nondominant vessel. The proximal LCx is angiographically normal and gives rises into a medium-sized OM which works as a ramus intermedius. The mid LCx is angiographically normal and gives rises into second OM branch which is a large caliber vessel and seems to be angiographically normal. The LCx distally appeared to be angiographically normal and also gives rises into a third OM branch which appeared to be angiographically normal The left anterior descending artery: Is a large caliber vessel. Its angiographically normal. The proximal to midportion gives rises into a large first and second diagonal branches and both appeared to be angiographically normal. The LAD does reach the apex. HEMODYNAMICS: The LVEDP was 8 mmHg without significant gradient across aortic valve CONCLUSION: 1. Normal coronary angiogram 2. Normal LVEDP 3. No gradient across aortic valve POSTPROCEDURE MANAGEMENT: 1. Medical treatment 2. Follow-up with the patient
[2019-09-25] MEDS ORDERED: SODIUM CHLORIDE 0.9% 1,000 ML IV SCH (09:30)
[2019-09-25 13:56] VITALS: PULSE 64
[2019-09-25 14:41] VITALS: BP 121/72
== END 2019-09-25 14:35 | disposition home or self-care (01) ==
LOC: CATHCVL 07:51
PROVIDERS: ATTEND Internal Medicine Interventional Cardiology
DX: I20.0 Unstable angina (principal); I10 Essential (primary) hypertension; E78.5 Hyperlipidemia, unspecified; E78.00 Pure hypercholesterolemia, unspecified; G47.30 Sleep apnea, unspecified; Z79.899 Other long term (current) drug therapy; Z88.8 Allergy status to other drugs, medicaments and biological substances
CPT/HCPCS: 93458; C1769 ×2; C1894; J2250; J2001; J1644; Q9967

== ENCOUNTER → 2019-11-29 | Outpatient (CLI) | payer OTHER ==
[2019-11-29 11:55] LABS: Basophils # (A) 0.1 k/uL (0-0.2); Basophils % (A) 1 %; Eosinophils # (A) 0.3 k/uL (0-0.7); Eosinophils % (A) 4 %; HCT 35.7 % (39.0-53.0); HGB 10.7 gm/dL (13.0-17.5); Hypochromasia Marked; Lymphocytes # (A) 2.2 k/uL (1.0-4.8); Lymphocytes % (A) 32 %; MCH 22.6 pg (25.0-35.0); MCHC 30.1 g/dL (31.0-37.0); MCV 75.1 fL (80.0-100.0); Mean Platelet Volume 7.2; Microcytosis Slight; Monocytes # (A) 0.4 k/uL (0-1.0); Monocytes % (A) 6 %; Neutrophils # (A) 3.9 k/uL (1.3-7.7); Neutrophils % (A) 56 %; Platelet Count 309 k/uL (150-450); RBC 4.75 m/uL (4.30-5.90); RDW 14.6 % (11.5-15.5); WBC 7.1 k/uL (3.8-10.6)
[2019-11-29 11:57] LABS: Potassium 4.4 mmol/L (3.5-5.1)
== END | disposition home or self-care (01) ==
LOC: LABPAT 10:51
PROVIDERS: ATTEND Orthopaedic Surgery
DX: Z01.818 Encounter for other preprocedural examination (principal); G56.02 Carpal tunnel syndrome, left upper limb
CPT/HCPCS: 36415; 80051; 85025

== ENCOUNTER 2019-12-07 11:01 | Day surgery (SDC) | payer OTHER ==
[2019-12-04 10:57] VITALS: BMI 34.6
--- NOTE | 2019-12-06 14:05 | HP ---
HISTORY AND PHYSICAL DATE OF SURGERY: 12/07/2019 Dinesh Colmenares is a 59-year-old patient seen with symptomatic left carpal tunnel syndrome. We discussed options. He elected to proceed with decompression of left median nerve. Consent regarding the procedure was obtained. PAST MEDICAL HISTORY: Hypertension, depression, asthma. PAST SURGICAL HISTORY: Left total hip arthroplasty, right shoulder arthroscopy. DAILY MEDICATIONS: Ibuprofen, melatonin, metoprolol, omeprazole. ALLERGIES: ATORVASTATIN, PSEUDOEPHEDRINE. SOCIAL HISTORY: He denies tobacco use. PHYSICAL EVALUATION OF THE LEFT HAND: He has a positive carpal compression and carpal Tinel's exacerbating numbness and tingling throughout the median nerve distribution. There is some decreased sensation throughout the median nerve distribution. There is good perfusion distally. There is good radial pulse is present. RADIOGRAPHS: Were obtained revealing some osteoarthritic changes. An EMG revealed carpal tunnel syndrome. IMPRESSION: 1. Left carpal tunnel syndrome. 2. Hypertension. 3. Asthma. PLAN: Decompression of left median nerve. MMODL / IJN: [id number] /
[~2019-12-07 11:01] MED LIST changes: -ALPRAZolam 0.25 MG TAB PO PRN; -ALPRAZolam 0.5 MG TAB PO PRN; -ASPIRIN 325 MG TAB PO ONE; -ATORVASTATIN 80 MG TAB PO ONE; +DEXAMETHASONE SOD PHOSPHATE 10 MG/ML 1 ML VIAL IV ONE; +HYDROmorphone 0.5 MG/0.5 ML SYRINGE IVP PRN; +LACTATED RINGERS 1,000 ML IV SCH; +LIDOCAINE 1% (10MG/ML) FOR IV START INTRADERMA PRN; +MIDAZOLAM 2 MG/2 ML VIAL IV PRN; -NITROGLYCERIN SL TABS 0.4 MG TAB SUBLINGUAL PRN; +ONDANSETRON 4 MG/2 ML VIAL IVP ONE; -SODIUM CHLORIDE 0.9% 1,000 ML in EMPTY BAG 1 BAG IV ONE
[2019-12-07 11:22] VITALS: TEMP 98.1
[2019-12-07] MEDS ORDERED: ONDANSETRON 4 MG/2 ML VIAL ONE (11:27)
[2019-12-07] MEDS ORDERED: PROPOFOL 10 MG/ML 20 ML VIAL IV ONE (12:08)
[2019-12-07] MEDS ORDERED: MIDAZOLAM 2 MG/2 ML VIAL ONE (12:08)
[2019-12-07] MEDS ORDERED: fentaNYL (PF) 50 MCG/ML 2 ML AMP ONE (12:08)
[2019-12-07] MEDS ORDERED: BUPIVACAINE (PF) 0.25% 30 ML VIAL SQ ONE ×2 (12:21)
--- NOTE | 2019-12-07 12:38 | P.OP ---
Date of Procedure: 12/07/19 Preoperative Diagnosis: Left carpal tunnel syndrome Postoperative Diagnosis: Left carpal tunnel syndrome Procedure(s) Performed: Decompression left median nerve Anesthesia: MAC, local Surgeon: Salvatore Carreno Estimated Blood Loss (ml): 0 Pathology: none sent Condition: stable Disposition: PACU Indications for Procedure: 59-year-old patient seen with symptomatic left carpal tunnel syndrome. After treatment options were discussed, he elected to proceed with decompression left median nerve. Operative Findings: See description of procedure Description of Procedure: Patient was taken to the operative suite. The patient underwent IV sedation by the department of anesthesia. The patient had received preoperative IV antibiotics. A well-padded tourniquet was placed proximal left upper extremity. The left upper extremity was prepped and draped in the normal sterile orthopedic fashion. The proposed incision site was infiltrated with 10 mL quarter percent plain Marcaine. When sufficient local analgesia was noted the extremity was elevated and tourniquet insufflated to 200. An incision was made beginning at the distal volar wrist crease extending distally approximately 3 cm in line with the fourth metacarpal sharply through skin. I dissected down through the subcu soft tissues and down to the palmar fascia to the transverse carpal ligament. The small incision was made centrally. I released the transverse carpal ligament proximally and distally with blunt Metzenbaums. There was complete release the ligament and good decompression of the nerve. There was good hemostasis. The wound was irrigated. The skin margins were proximal nylon suture. Sterile dressings were applied. Sterile web was applied. A Coban was applied. The tourniquet was released with immediate capillary refill of all digits noted. The patient was awakened transferred recovery having tolerated procedure well.
[2019-12-07 13:35] VITALS: BP 118/69; PULSE 70; RESP 18
== END 2019-12-07 13:51 | disposition home or self-care (01) ==
LOC: OR 11:01
PROVIDERS: ATTEND Orthopaedic Surgery
DX: G56.02 Carpal tunnel syndrome, left upper limb (principal); I10 Essential (primary) hypertension; J45.909 Unspecified asthma, uncomplicated; E78.5 Hyperlipidemia, unspecified; G47.33 Obstructive sleep apnea (adult) (pediatric); M10.9 Gout, unspecified; J98.6 Disorders of diaphragm; M19.90 Unspecified osteoarthritis, unspecified site; F41.9 Anxiety disorder, unspecified; F32.9 Major depressive disorder, single episode, unspecified; K21.9 Gastro-esophageal reflux disease without esophagitis; Z99.89 Dependence on other enabling machines and devices; Z88.8 Allergy status to other drugs, medicaments and biological substances; Z79.1 Long term (current) use of non-steroidal anti-inflammatories (NSAID); Z79.899 Other long term (current) drug therapy; Z96.642 Presence of left artificial hip joint; Z98.890 Other specified postprocedural states
CPT/HCPCS: 64721; J2250; J1100; J0690; J2405; J3010; J2704

== ENCOUNTER 2020-01-10 09:17 | Day surgery (SDC) | payer OTHER ==
[2020-01-05 14:23] VITALS: BMI 34.6
--- NOTE | 2020-01-09 17:50 | HP ---
HISTORY AND PHYSICAL DATE OF SURGERY: 01/10/2020 Dinesh Colmenares is a 59-year-old patient seen with symptomatic right carpal tunnel syndrome. We discussed options. He elected to proceed decompression, right median nerve. Consent was obtained. PAST MEDICAL HISTORY: Hypertension, hyperlipidemia. PAST SURGICAL HISTORY: Decompression, left median nerve. DAILY MEDICATIONS: Ibuprofen, metoprolol, omeprazole. ALLERGIES: ATORVASTATIN, PSEUDOEPHEDRINE. SOCIAL HISTORY: Denies tobacco use. PHYSICAL EVALUATION OF THE RIGHT HAND: He has a positive carpal compression, positive carpal Tinel's causing numbness and tingling throughout the median nerve distribution. There is some decreased sensation throughout the median nerve distribution. There is good perfusion sensation distally. There is a radial pulse present. RADIOGRAPHS: Radiographs reveal some osteoarthritic changes. An EMG revealed carpal tunnel syndrome. IMPRESSION: 1. Right carpal tunnel syndrome. 2. Hypertension. 3. Gastroesophageal reflux disease. PLAN: Decompression, right median nerve. MMODL / IJN: [id number] /
[~2020-01-10 09:17] MED LIST changes: -LIDOCAINE 1% (10MG/ML) FOR IV START INTRADERMA PRN; +SCOPOLAMINE 1.5MG/72HR PATCH TRANSDERM ONE
[2020-01-10 09:44] VITALS: TEMP 97.1
[2020-01-10] MEDS ORDERED: LIDOCAINE 1% (10MG/ML) FOR IV START INTRADERMA ONE (09:50)
[2020-01-10] MEDS ORDERED: ONDANSETRON 4 MG/2 ML VIAL ONE (09:56)
[2020-01-10] MEDS ORDERED: fentaNYL (PF) 50 MCG/ML 2 ML AMP ONE (11:08)
[2020-01-10] MEDS ORDERED: PROPOFOL 10 MG/ML 20 ML VIAL IV ONE (11:08)
[2020-01-10] MEDS ORDERED: MIDAZOLAM 2 MG/2 ML VIAL ONE (11:08)
[2020-01-10] MEDS ORDERED: BUPIVACAINE (PF) 0.25% 30 ML VIAL SQ ONE (11:25)
--- NOTE | 2020-01-10 11:45 | P.OP ---
Date of Procedure: 01/10/20 Preoperative Diagnosis: Right carpal tunnel syndrome Postoperative Diagnosis: Right carpal tunnel syndrome Procedure(s) Performed: Decompression right median nerve Anesthesia: MAC, local Surgeon: Salvatore Carreno Estimated Blood Loss (ml): 0 Pathology: none sent Condition: stable Disposition: PACU Indications for Procedure: 59-year-old patient seen with symptomatic right carpal tunnel syndrome. After having treatment options discussed, he elected to proceed with decompression right median nerve. Operative Findings: See description of procedure Description of Procedure: The patient was taken to the operative suite. The patient underwent IV sedation by the department of anesthesia. The patient received preoperative IV antibiotics. A well-padded tourniquet was placed along the proximal right upper extremity. The right upper extremity was prepped and draped in the normal sterile orthopedic fashion. The proposed incision site was infiltrated with 10 mL quarter percent plain Marcaine. When sufficient local analgesia was noted the extremity was elevated and the tourniquet was insufflated to 250. I now made an incision beginning at the distal volar wrist crease extending distally approximately 3 cm in line with the fourth metacarpal sharply through skin. I dissected down through the palmar fascia to the transverse carpal ligament. I now incised the transverse carpal ligament. I now completed the release proximally and distally with blunt Metzenbaums. There was complete release of the transverse carpal ligament. There was good decompression of the nerve. There was good hemostasis. The wound was irrigated. The skin margins were approximated nylon suture. Sterile dressings were applied. The tourniquet was released with immediate capillary refill noted to the start extremity in all digits. A sterile web roll and Coban were applied. The patient was awakened and transferred to recovery having tolerated the procedure well.
[2020-01-10 12:27] VITALS: BP 124/78; PULSE 68; RESP 18
== END 2020-01-10 12:41 | disposition home or self-care (01) ==
LOC: OR 09:17
PROVIDERS: ATTEND Orthopaedic Surgery
DX: G56.01 Carpal tunnel syndrome, right upper limb (principal); I10 Essential (primary) hypertension; E78.5 Hyperlipidemia, unspecified; K21.9 Gastro-esophageal reflux disease without esophagitis; G47.33 Obstructive sleep apnea (adult) (pediatric); F41.9 Anxiety disorder, unspecified; F32.9 Major depressive disorder, single episode, unspecified; Z98.890 Other specified postprocedural states; Z86.69 Personal history of other diseases of the nervous system and sense organs; Z79.1 Long term (current) use of non-steroidal anti-inflammatories (NSAID); Z79.899 Other long term (current) drug therapy; Z88.8 Allergy status to other drugs, medicaments and biological substances; Z99.89 Dependence on other enabling machines and devices
CPT/HCPCS: 64721; J2250; J1100; J0690; J2405; J3010; J2704

== ENCOUNTER → 2020-02-06 | Outpatient (CLI) | payer OTHER ==
--- NOTE | 2020-02-06 14:47 | XR ---
EXAM TYPE: LUMBAR SPINE X RAY SERIES COMPARISON: 06/01/2018 HISTORY: Pain TECHNIQUE: 4 views are submitted. FINDINGS: There are 5 lumbar type vertebral bodies identified. The lumbar spine shows satisfactory alignment wi thout evidence of acute fracture or dislocation. Vertebral body heights are within normal limits. Mild degenerative disc space narrowing and spondylosis. Mild facet joint arthropathy detected. The ov erlying soft tissue appears unremarkable. Distention of the gastric air bubble incidentally noted. IMPRESSION: 1. Multilevel hypertrophic and degenerative disc disease. 2. Osteopenia. 3. There is distention of the gastric air bubble..
== END | disposition home or self-care (01) ==
LOC: RADXRMAIN 14:07
PROVIDERS: ATTEND Nurse Practitioner Family
DX: M51.37 Other intervertebral disc degeneration, lumbosacral region (principal); M85.88 Other specified disorders of bone density and structure, other site
CPT/HCPCS: 72100

== ENCOUNTER → 2020-05-20 | Outpatient (CLI) | payer OTHER ==
[2020-05-20 15:00] LABS: Basophils # (A) 0.1 k/uL (0-0.2); Basophils % (A) 1 %; Eosinophils # (A) 0.3 k/uL (0-0.7); Eosinophils % (A) 4 %; HCT 37.1 % (39.0-53.0); HGB 11.7 gm/dL (13.0-17.5); Hypochromasia Moderate; Lymphocytes # (A) 2.2 k/uL (1.0-4.8); Lymphocytes % (A) 25 %; MCH 21.2 pg (25.0-35.0); MCHC 31.6 g/dL (31.0-37.0); MCV 67.2 fL (80.0-100.0); Mean Platelet Volume 6.8; Microcytosis Marked; Monocytes # (A) 0.6 k/uL (0-1.0); Monocytes % (A) 7 %; Neutrophils # (A) 5.3 k/uL (1.3-7.7); Neutrophils % (A) 61 %; Platelet Count 312 k/uL (150-450); RBC 5.51 m/uL (4.30-5.90); RDW 15.9 % (11.5-15.5); WBC 8.7 k/uL (3.8-10.6)
[2020-05-20 20:34] LABS: African American GFR (CKD) 107.2 (60.0-200.0); Albumin 4.9 g/dL (3.80-4.90); Albumin/Globulin Ratio 2.45 (1.60-3.17); Anion Gap 9.1 mmol/L (4.00-12.00); BUN/Creat Ratio 17.78 Ratio (12.00-20.00); Calcium 9.8 mg/dL (8.7-10.3); Carbon Dioxide 24.9 mmol/L (21.6-31.8); Chol/HDL Ratio 5.82; LDL Cholesterol,Calculated 157.4 mg/dL (0.0-131.0); Non-African American GFR(CKD) 92.5 (60.0-200.0); Potassium 4.7 mmol/L (3.5-5.5); Total Bilirubin 0.5 mg/dL (0.3-1.2); Total Protein 6.9 g/dL (6.2-8.2); VLDL Calculation 54.6 mg/dL (5.00-40.00)
[2020-05-21 13:19] LABS: % Iron Saturation 7.18 (15.00-50.00); Folate, Serum 22.6 ng/mL
== END | disposition home or self-care (01) ==
LOC: LABWHC1 13:39
PROVIDERS: ATTEND Nurse Practitioner Family
DX: I10 Essential (primary) hypertension (principal); E78.5 Hyperlipidemia, unspecified
CPT/HCPCS: 36415; 80053; 80061; 82607; 82746; 83540; 83550; 84439; 84443; 85025

== ENCOUNTER 2020-08-21 06:59 | Day surgery (SDC) | payer OTHER ==
[2020-08-20 12:20] VITALS: BMI 34.4
[~2020-08-21 06:59] MED LIST changes: -DEXAMETHASONE SOD PHOSPHATE 10 MG/ML 1 ML VIAL IV ONE; -HYDROmorphone 0.5 MG/0.5 ML SYRINGE IVP PRN; +LIDOCAINE 1% (10MG/ML) FOR IV START INTRADERMA PRN; -MIDAZOLAM 2 MG/2 ML VIAL IV PRN; -ONDANSETRON 4 MG/2 ML VIAL IVP ONE; -SCOPOLAMINE 1.5MG/72HR PATCH TRANSDERM ONE
[2020-08-21 07:29] VITALS: TEMP 97.7
[2020-08-21] MEDS ORDERED: PROPOFOL 10 MG/ML 20 ML VIAL IV ONE (08:05)
[2020-08-21] MEDS ORDERED: LIDOCAINE 1% INJ 10MG/ML (20 ML MDV) ONE (08:05)
--- NOTE | 2020-08-21 08:12 | P.GSHP ---
History of Present Illness H&P Date: 08/21/20 CHIEF COMPLAINT: Anemia with gastrointestinal bleeding HISTORY OF PRESENT ILLNESS: The patient is a 60-year-old male who presents with gastrointestinal bleeding and anemia. Upper and lower endoscopy were offered for further evaluation and management. PAST MEDICAL HISTORY: Please see list. PAST SURGICAL HISTORY: Please see list. MEDICATIONS: Please see list. ALLERGIES: Please see list. SOCIAL HISTORY: No illicit drug use FAMILY HISTORY: No reports of Crohn disease or ulcerative colitis. REVIEW OF ORGAN SYSTEMS: CONSTITUTIONAL: No reports of fevers or chills. PHYSICAL EXAM: VITAL SIGNS: Stable GENERAL: Well-developed pleasant in no acute distress. HEENT: No scleral icterus. Extraocular movements grossly intact. Moist buccal mucosa. NECK: Supple without lymphadenopathy. CHEST: Unlabored respirations. Equal bilateral excursions. CARDIOVASCULAR: Regular rate and rhythm. Distal 2+ pulses. ABDOMEN: Soft, nondistended. MUSCULOSKELETAL: No clubbing, cyanosis, or edema. ASSESSMENT: 1. Anemia with gastrointestinal bleed PLAN: 1. Recommend proceeding with an upper and lower endoscopy Past Medical History Past Medical History: GERD/Reflux, Hyperlipidemia, Sleep Apnea/CPAP/BIPAP Additional Past Medical History / Comment(s): received 1 rst dose moderna vaccine,hernia upper mid abdomen, Chronic cough after eating, stabbing pain in abdomen with occasional bright red bleeding on outer stools, skin irritation to groin, CPAP use,has a paralyzed left side diaphragm History of Any Multi-Drug Resistant Organisms: None Reported Past Surgical History: Joint Replacement, Orthopedic Surgery Additional Past Surgical History / Comment(s): Pin in left shoulder, bisi carpal tunnel surgery,left hip replacement Past Anesthesia/Blood Transfusion Reactions: No Reported Reaction Additional Past Anesthesia/Blood Transfusion Reaction / Comment(s): Unsure of family hx. Smoking Status: Never smoker - Past Family History Mother Family Medical History: No Reported History Medications and Allergies Home Medications Medication Instructions Recorded Confirmed Type Metoprolol Tartrate [Lopressor] 25 mg PO BID 03/24/19 08/21/20 History Escitalopram [Lexapro] 20 mg PO DAILY 09/21/19 08/21/20 History Vitamin B Complex 1 each PO DAILY 09/21/19 08/21/20 History Cholecalciferol [Vitamin D3 (25 5,000 unit PO DAILY 12/04/19 08/21/20 History Mcg = 1000 Iu)] Hydrocortisone Cream 1 applic TOPICAL DAILY PRN 12/04/19 08/21/20 History [Hydrocortisone 2.5% Cream] Ibuprofen [Motrin] 800 mg PO Q8H PRN 12/04/19 08/21/20 History Krill/Om-3/Dha/Epa/Phospho/Ast 1 each PO DAILY 12/04/19 08/21/20 History [[place]-3 Krill Oil 300 mg Sfgl] Melatonin 10 mg PO HS PRN 12/04/19 08/21/20 History Omeprazole [PriLOSEC] 40 mg PO DAILY 12/04/19 08/21/20 History Allergies Allergy/AdvReac Type Severity Reaction Status Date / Time pseudoephedrine Allergy nervousness Verified 08/21/20 07:31 Hqtppnc-Ghk-Soo Reductase Allergy muscle pain Verified 08/21/20 07:31 Inhibitor Surgical - Exam Vital Signs Temp Pulse Resp BP Pulse Ox 97.7 F 85 16 139/83 97 08/21/20 07:28 08/21/20 07:28 08/21/20 07:28 08/21/20 07:28 08/21/20 07:28
--- NOTE | 2020-08-21 08:20 | P.PCN ---
Date of Procedure: 08/21/20 Description of Procedure: PREOPERATIVE DIAGNOSIS: Anemia Gastrointestinal bleed POSTOPERATIVE DIAGNOSIS: Gastritis with recent bleeding Duodenitis Gastroesophageal reflux disease OPERATION: Esophagogastroduodenoscopy with biopsies along antrum. SURGEON: Breanna Ramirez MD ANESTHESIA: MAC. INDICATIONS: The patient is a 60-year-old male who presents with a history of anemia and gastrointestinal bleeding. Benefits and risks of the procedure were described. Informed consent was obtained. DESCRIPTION: The patient was brought into the endoscopy suite and laid in the left lateral decubitus position. An Olympus gastroscope was passed along the posterior oropharynx down to the distal esophagus where the squamocolumnar junction was encountered at 43 cm from the incisors. The stomach was entered and no bile reflux was found. Additional findings are listed below. Biopsies with cold forceps were obtained of the antrum. The first through third portion of the duodenum was examined and remarkable for duodenitis. Retroflexion of the scope confirmed Hill grade 1 lower esophageal valve. The squamocolumnar junction demonstrated LA grade A erosive esophagitis. The stomach was desufflated. The patient tolerated the procedure well. FINDINGS: Squamocolumnar junction 43 cm from the incisors. Diaphragmatic hiatus at 43 cm. Hill grade 1 lower esophageal valve. LA grade A erosive esophagitis. Active duodenitis. Chronic gastritis with recent bleed RECOMMENDATIONS: Upper endoscopy as needed.
--- NOTE | 2020-08-21 08:35 | P.PCN ---
Date of Procedure: 08/21/20 Description of Procedure: PREOPERATIVE DIAGNOSIS: Anemia History of gastrointestinal bleeding POSTOPERATIVE DIAGNOSIS: Colon polyp cecum Internal hemorrhoids, grade 3 OPERATION: Colonoscopy to the ileocecal valve and appendiceal orifice, cecum Colonoscopy with cold forceps biopsy SURGEON: Breanna Ramirez MD. ANESTHESIA: MAC. INDICATIONS: The patient is a 60-year-old male who presents with anemia including gastrointestinal bleeding. Benefits and risks were described and informed consent was obtained. DESCRIPTION OF PROCEDURE: The patient had undergone Sutab prep.The patient had been brought into the operating room and laid in the left lateral decubitus position. After adequate intravenous sedation, the rectum was examined with 2% lidocaine jelly. The prostate was firm but without nodularity. External hemorrhoids were encountered. The rectal tone was within normal limits. No lesions were palpated in the rectal vault. An Olympus colonoscope was advanced until the cecum, ileocecal valve and appendiceal orifice were clearly viewed. The prep was excellent. No sigmoid diverticulosis was encountered. Colonic polyps were found and removed. No evidence of focal colitis was found. Retroflexion of the scope demonstrated grade 3 internal hemorrhoids without active bleeding or inf lammation. The colon was desufflated. The patient had tolerated the procedure well. Withdrawal time was over 6 minutes. FINDINGS: Aronchick preparation quality scale 1 (1-5) Internal hemorrhoids, grade 3 External hemorrhoids, grade 2. No arteriovenous malformations. No sigmoid diverticulosis Removal of 1 polyp: - Cold forceps biopsy at the cecum, 5 mm polyp. No focal colitis. RECOMMENDATIONS: Repeat colonoscopy 5 years, 2025 Plan - Discharge Summary Discharge Rx Participant: No New Discharge Prescriptions: Continue Metoprolol Tartrate [Lopressor] 25 mg PO BID Escitalopram [Lexapro] 20 mg PO DAILY Vitamin B Complex 1 each PO DAILY Krill/Om-3/Dha/Epa/Phospho/Ast [[place]-3 Krill Oil 300 mg Sfgl] 1 each PO DAILY Cholecalciferol [Vitamin D3 (25 Mcg = 1000 Iu)] 5,000 unit PO DAILY Omeprazole [PriLOSEC] 40 mg PO DAILY Ibuprofen [Motrin] 800 mg PO Q8H PRN PRN Reason: Pain Hydrocortisone Cream [Hydrocortisone 2.5% Cream] 1 applic TOPICAL DAILY PRN PRN Reason: Rash Melatonin 10 mg PO HS PRN PRN Reason: sleep Discharge Medication List Metoprolol Tartrate [Lopressor] 25 mg PO BID 03/24/19 [History] Escitalopram [Lexapro] 20 mg PO DAILY 09/21/19 [History] Vitamin B Complex 1 each PO DAILY 09/21/19 [History] Cholecalciferol [Vitamin D3 (25 Mcg = 1000 Iu)] 5,000 unit PO DAILY 12/04/19 [History] Hydrocortisone Cream [Hydrocortisone 2.5% Cream] 1 applic TOPICAL DAILY PRN 12/04/19 [History] Ibuprofen [Motrin] 800 mg PO Q8H PRN 12/04/19 [History] Krill/Om-3/Dha/Epa/Phospho/Ast [[place]-3 Krill Oil 300 mg Sfgl] 1 each PO DAILY 12/04/19 [History] Melatonin 10 mg PO HS PRN 12/04/19 [History] Omeprazole [PriLOSEC] 40 mg PO DAILY 12/04/19 [History] Follow up Appointment(s)/Referral(s): Breanna Ramirez MD [STAFF PHYSICIAN] - 09/03/20 Patient Instructions/Handouts: Rectal Bleeding (GEN), Hemorrhoids (DC), Colorectal Polyps (GEN), Diet for Stomach Ulcers and Gastritis (ED), Duodenitis (DC) Activity/Diet/Wound Care/Special Instructions: Repeat colonoscopy 5 years, 2025 Discharge Disposition: HOME SELF-CARE
[2020-08-21 08:51] VITALS: BP 131/90; PULSE 69; RESP 16
== END 2020-08-21 09:55 | disposition home or self-care (01) ==
LOC: ORWHC2ENDO 06:59
PROVIDERS: ATTEND Surgery Plastic and Reconstructive Surgery
DX: K29.51 Unspecified chronic gastritis with bleeding (principal); K29.81 Duodenitis with bleeding; D12.0 Benign neoplasm of cecum; K64.4 Residual hemorrhoidal skin tags; K64.8 Other hemorrhoids; D64.9 Anemia, unspecified; K21.9 Gastro-esophageal reflux disease without esophagitis; G47.33 Obstructive sleep apnea (adult) (pediatric); F32.9 Major depressive disorder, single episode, unspecified; Z79.899 Other long term (current) drug therapy; Z88.8 Allergy status to other drugs, medicaments and biological substances
CPT/HCPCS: 88305; 45380; 43239; J2001; J2704

== ENCOUNTER → 2021-02-14 | Outpatient (CLI) | payer OTHER ==
--- NOTE | 2021-02-14 13:22 | XR ---
EXAMINATION TYPE: XR Hip Bilateral and AP pelvis DATE OF EXAM: 02/14/2021 COMPARISON: NONE HISTORY: Pain TECHNIQUE: A single AP view of the pelvis is obtained. Two views of the bilateral hip are obtained. FINDINGS: There is no acute fracture/dislocation evident in the pelvis. Postsurgical change left hip and severe arthropathy right hip. Vascular calcifications in the pelvis. Hypertrophic and degenerati ve change of the spine. Arthropathy of the right SI joint. IMPRESSION: 1. Postsurgical change left hip. 2. 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 3. Right SI joint arthropathy.
--- NOTE | 2021-02-14 13:23 | XR ---
EXAM TYPE: LUMBAR SPINE X RAY SERIES COMPARISON: 02/26/2020 HISTORY: Pain TECHNIQUE: 4 views are submitted. FINDINGS: Alignment is anatomic. The pedicles are intact. The transverse processes are intact. There is no s pondylolysis or spondylolisthesis. Hypertrophic and degenerative change of the spine with diffuse ost eopenia. No spondylolysis or spondylolisthesis. IMPRESSION: 1. Multilevel hypertrophic and degenerative changes.
== END | disposition home or self-care (01) ==
LOC: RADXRMAIN 12:46
PROVIDERS: ATTEND Nurse Practitioner
DX: M16.11 Unilateral primary osteoarthritis, right hip (principal)
CPT/HCPCS: 72110; 73521

== ENCOUNTER 2021-07-13 13:21 | Emergency (ER) | payer MEDICARE, OTHER ==
[2021-07-13 13:25] VITALS: TEMP 97.8
[2021-07-13] MEDS ORDERED: SODIUM CHLORIDE 0.9% 1,000 ML IV STA (13:58)
[2021-07-13] MEDS ORDERED: ONDANSETRON 4 MG/2 ML VIAL IVP STA (13:58)
[2021-07-13] MEDS ORDERED: MORPHINE SULFATE 4 MG/ML SYRINGE IV STA (13:58)
--- NOTE | 2021-07-13 14:24 | ED ---
General Adult HPI - General Chief complaint: Abdominal Pain Stated complaint: Hernia, abd pain Time Seen by Provider: 07/13/21 13:32 Source: family Mode of arrival: ambulatory Limitations: no limitations - History of Present Illness Initial comments: This 61-year-old male presents emergency Department with abdominal pain 5 days. Patient states he was diagnosed with either a ventral hernia 5 years ago which has not caused him any issues until 5 days ago where he has been expressing pain right over his hernia just above his bellybutton. Patient states he's had discomfort over his hernia over the last 5 days, however is significantly worse yesterday and today. Patient states the pain and discomfort are always there, however the intensity does wax and wane. Patient states when he pushes on it, coughs, or weightbears it causes increased pain. Patient states his pain is currently 8 out of 10. Patient states when he bears down he is able to see the hernia protrudes which has been like that for years and denies increasing in size. Patient states over the last 2 days he has had some a few episodes of diarrhea but denies any hematochezia. He states his last normal bowel movement was yesterday and denies it being hard in consistency. Patient denies any chest pain, shortness of breath, double or blurred vision, nausea, vomiting, headache, lightheadedness, dizziness, constipation, change in bladder, change in appetite. - Related Data Home Medications Medication Instructions Recorded Confirmed Metoprolol Tartrate [Lopressor] 25 mg PO BID 03/24/19 08/21/20 Escitalopram [Lexapro] 20 mg PO DAILY 09/21/19 08/21/20 Vitamin B Complex 1 each PO DAILY 09/21/19 08/21/20 Cholecalciferol [Vitamin D3 (25 5,000 unit PO DAILY 12/04/19 08/21/20 Mcg = 1000 Iu)] Hydrocortisone Cream 1 applic TOPICAL DAILY PRN 12/04/19 08/21/20 [Hydrocortisone 2.5% Cream] Ibuprofen [Motrin] 800 mg PO Q8H PRN 12/04/19 08/21/20 Krill/Om-3/Dha/Epa/Phospho/Ast 1 each PO DAILY 12/04/19 08/21/20 [[place]-3 Krill Oil 300 mg Sfgl] Melatonin 10 mg PO HS PRN 12/04/19 08/21/20 Omeprazole [PriLOSEC] 40 mg PO DAILY 12/04/19 08/21/20 Allergies Allergy/AdvReac Type Severity Reaction Status Date / Time pseudoephedrine Allergy nervousness Verified 07/13/21 13:25 Roktgei-VOR-KkL Reductase Allergy muscle pain Verified 07/13/21 13:25 Inhibitor [Kduymlt-Sjx-Wwu Reductase Inhibitor] Review of Systems ROS Statement: Those systems with pertinent positive or pertinent negative responses have been documented in the HPI. ROS Other: All systems not noted in ROS Statement are negative. Past Medical History Past Medical History: GERD/Reflux, Hyperlipidemia, Sleep Apnea/CPAP/BIPAP Additional Past Medical History / Comment(s): received 1 rst dose moderna vaccine,hernia upper mid abdomen, Chronic cough after eating, stabbing pain in abdomen with occasional bright red bleeding on outer stools, skin irritation to groin, CPAP use,has a paralyzed left side diaphragm History of Any Multi-Drug Resistant Organisms: None Reported Past Surgical History: Joint Replacement, Orthopedic Surgery Additional Past Surgical History / Comment(s): Pin in left shoulder, bisi carpal tunnel surgery,left hip replacement Past Anesthesia/Blood Transfusion Reactions: No Reported Reaction Additional Past Anesthesia/Blood Transfusion Reaction / Comment(s): Unsure of family hx. Past Psychological History: No Psychological Hx Reported Smoking Status: Never smoker - Past Family History Mother Family Medical History: No Reported History General Exam Limitations: no limitations General appearance: alert, in no apparent distress Head exam: Present: atraumatic, normocephalic, normal inspection Eye exam: Present: normal appearance, PERRL, EOMI ENT exam: Present: mucous membranes moist Neck exam: Present: normal inspection, full ROM. Absent: tenderness, meningismus, lymphadenopathy Respiratory exam: Present: normal lung sounds bilaterally. Absent: respiratory distress, wheezes, rales, rhonchi, stridor, chest wall tenderness Cardiovascular Exam: Present: regular rate, normal rhythm, normal heart sounds. Absent: systolic murmur, diastolic murmur, rubs, gallop, clicks GI/Abdominal exam: Present: soft, tenderness (Tenderness over hernia just above the umbilicus up to just below the xiphoid process. When patient bears down, hernia does protrude and relaxes with patient relaxing/expiration. Patient states this is no change from prior 5 years), normal bowel sounds, hernia. Absent: distended, guarding, rebound, rigid Extremities exam: Present: full ROM Back exam: Present: normal inspection, full ROM. Absent: CVA tenderness (R), CVA tenderness (L), paraspinal tenderness, vertebral tenderness Neurological exam: Present: alert, oriented X3, CN II-XII intact Psychiatric exam: Present: normal affect, normal mood Skin exam: Present: warm, dry, intact, normal color. Absent: rash Course Vital Signs 07/13/21 07/13/21 13:23 17:47 Temperature 97.8 F Pulse Rate 79 78 Respiratory 18 16 Rate Blood Pressure 155/88 138/77 O2 Sat by Pulse 97 99 Oximetry - Reevaluation(s) Reevaluation #1: 07/13/21 16:31 And reevaluation, patient states his abdominal pain has significantly decreased. I did offer more pain medication and nausea medication, however patient states his pain is only 2/10 and he is no longer nauseous. Patient states his pain is still just above his umbilicus. 07/13/21 17:00 On reevaluation, patient given cup for urine sample. Patient stated his pain has significantly decreased and he is still not nauseous. Patient states his pain 2/10 07/13/21 17:15 And evaluation, patient states his pain has increased a little bit and is now 4/10 after he got up and moved around and went to the bathroom for urine sample. Toradol was given to patient. 07/13/21 17:32 On reevaluation, patient is requesting to go home. He states he'll follow-up with general surgery tomorrow morning. I did discuss strict return precautions with patient, he agreed to return if symptoms come back or worsened or any new symptoms arose. Medical Decision Making - Medical Decision Making This 61-year-old male presents emergency Department with abdominal pain 5 days. Labs unremarkable. Urine unremarkable. Fluids given. Chest x-ray impression: Some mild atelectasis of the left lung base. There is evidence of minimal small bowel ileus and upper abdomen. No evidence of umbilical hernia. Chest x-ray impression: Mild atelectasis left lung base which is mostly new compared to old exam normal heart. After fluids, Zofran and pain medication, patient's symptoms were relieved. Patient states that he coughs or bears down he still does have discomfort around his hernia but states is no different than his past. Patient instructed to follow up with general surgery tomorrow morning. Strict return precautions were discussed and patient stated he would return with any new or worsening symptoms. Patient currently without pain and no nausea prior to discharge. Patient verbally agreed to plan. I did instruct patient to use [id number]-vbdljzh MiraLAX, however he states that he is not constipated and has been having normal bowel movements. Patient sent home in stable condition. Case discussed with my attending, Dr. Rivera. - Lab Data Result diagrams: 07/13/21 14:24 07/13/21 14:24 Lab Results 07/13/21 07/13/21 07/13/21 Range/Units 14:24 14:24 14:24 WBC 8.3 (3.8-10.6) k/uL RBC 5.52 (4.30-5.90) m/uL Hgb 16.2 (13.0-17.5) gm/dL Hct 46.9 (39.0-53.0) % MCV 85.0 (80.0-100.0) fL MCH 29.4 (25.0-35.0) pg MCHC 34.6 (31.0-37.0) g/dL RDW 13.4 (11.5-15.5) % Plt Count 225 (150-450) k/uL MPV 7.8 Neutrophils % 62 % Lymphocytes % 25 % Monocytes % 8 % Eosinophils % 3 % Basophils % 1 % Neutrophils # 5.1 (1.3-7.7) k/uL Lymphocytes # 2.1 (1.0-4.8) k/uL Monocytes # 0.7 (0-1.0) k/uL Eosinophils # 0.3 (0-0.7) k/uL Basophils # 0.1 (0-0.2) k/uL Sodium 141 (137-145) mmol/L Potassium 4.3 (3.5-5.1) mmol/L Chloride 110 H (98-107) mmol/L Carbon Dioxide 19 L (22-30) mmol/L Anion Gap 12 mmol/L BUN 18 (9-20) mg/dL Creatinine 0.86 (0.66-1.25) mg/dL Est GFR (CKD-EPI)AfAm >90 (>60 ml/min/1.73 sqM) Est GFR (CKD-EPI)NonAf >90 (>60 ml/min/1.73 sqM) Glucose 91 (74-99) mg/dL Plasma Lactic Acid Alvin 1.1 (0.7-2.0) mmol/L Calcium 9.6 (8.4-10.2) mg/dL Total Bilirubin 0.7 (0.2-1.3) mg/dL AST 36 (17-59) U/L ALT 36 (4-49) U/L Alkaline Phosphatase 78 (38-126) U/L Total Protein 7.7 (6.3-8.2) g/dL Albumin 4.7 (3.5-5.0) g/dL Lipase 71 (23-300) U/L Urine Color Urine Appearance (Clear) Urine pH (5.0-8.0) Ur Specific [place] (1.001-1.035) Urine Protein (Negative) Urine Glucose (UA) (Negative) Urine Ketones (Negative) Urine Blood (Negative) Urine Nitrite (Negative) Urine Bilirubin (Negative) Urine Urobilinogen (<2.0) mg/dL Ur Leukocyte Esterase (Negative) 07/13/21 Range/Units 17:09 WBC (3.8-10.6) k/uL RBC (4.30-5.90) m/uL Hgb (13.0-17.5) gm/dL Hct (39.0-53.0) % MCV (80.0-100.0) fL MCH (25.0-35.0) pg MCHC (31.0-37.0) g/dL RDW (11.5-15.5) % Plt Count (150-450) k/uL MPV Neutrophils % % Lymphocytes % % Monocytes % % Eosinophils % % Basophils % % Neutrophils # (1.3-7.7) k/uL Lymphocytes # (1.0-4.8) k/uL Monocytes # (0-1.0) k/uL Eosinophils # (0-0.7) k/uL Basophils # (0-0.2) k/uL Sodium (137-145) mmol/L Potassium (3.5-5.1) mmol/L Chloride (98-107) mmol/L Carbon Dioxide (22-30) mmol/L Anion Gap mmol/L BUN (9-20) mg/dL Creatinine (0.66-1.25) mg/dL Est GFR (CKD-EPI)AfAm (>60 ml/min/1.73 sqM) Est GFR (CKD-EPI)NonAf (>60 ml/min/1.73 sqM) Glucose (74-99) mg/dL Plasma Lactic Acid Alvin (0.7-2.0) mmol/L Calcium (8.4-10.2) mg/dL Total Bilirubin (0.2-1.3) mg/dL AST (17-59) U/L ALT (4-49) U/L Alkaline Phosphatase (38-126) U/L Total Protein (6.3-8.2) g/dL Albumin (3.5-5.0) g/dL Lipase (23-300) U/L Urine Color Light Yellow Urine Appearance Clear (Clear) Urine pH 5.5 (5.0-8.0) Ur Specific [place] >1.050 H (1.001-1.035) Urine Protein Negative (Negative) Urine Glucose (UA) Negative (Negative) Urine Ketones Negative (Negative) Urine Blood Negative (Negative) Urine Nitrite Negative (Negative) Urine Bilirubin Negative (Negative) Urine Urobilinogen <2.0 (<2.0) mg/dL Ur Leukocyte Esterase Negative (Negative) Disposition Clinical Impression: Abdominal pain Disposition: HOME SELF-CARE Condition: Stable Instructions (If sedation given, give patient instructions): Abdominal Pain (ED) Additional Instructions: ,Please follow-up with general surgery in the next 1-2 days, . Follow-up with primary care this week. Return to the emergency department with any new, worsening or concerning symptoms. Can use [id number]-ceb-malygsj MiraLAX for constipation. Is patient prescribed a controlled substance at d/c from ED?: No Referrals: Ernst Quiorz MD [Primary Care Provider] - 1-2 days Giovanni Quiroz MD [STAFF PHYSICIAN] - 1-2 days Time of Disposition: 17:36
[2021-07-13 14:32] LABS: Basophils # (A) 0.1 k/uL (0-0.2); Basophils % (A) 1 %; Eosinophils # (A) 0.3 k/uL (0-0.7); Eosinophils % (A) 3 %; HCT 46.9 % (39.0-53.0); HGB 16.2 gm/dL (13.0-17.5); Lymphocytes # (A) 2.1 k/uL (1.0-4.8); Lymphocytes % (A) 25 %; MCH 29.4 pg (25.0-35.0); MCHC 34.6 g/dL (31.0-37.0); Mean Platelet Volume 7.8; Monocytes # (A) 0.7 k/uL (0-1.0); Monocytes % (A) 8 %; Neutrophils # (A) 5.1 k/uL (1.3-7.7); Neutrophils % (A) 62 %; Platelet Count 225 k/uL (150-450); RBC 5.52 m/uL (4.30-5.90); RDW 13.4 % (11.5-15.5); WBC 8.3 k/uL (3.8-10.6)
[2021-07-13 14:41] LABS: ALT 36 U/L (4-49); AST 36 U/L (17-59); African American GFR (CKD) >90 (>60 ml/min/1.73 sqM); Albumin 4.7 g/dL (3.5-5.0); Alkaline Phosphatase 78 U/L (38-126); Anion Gap 12 mmol/L; Blood Urea Nitrogen 18 mg/dL (9-20); Calcium 9.6 mg/dL (8.4-10.2); Carbon Dioxide 19 mmol/L (22-30); Chloride 110 mmol/L (98-107); Glucose 91 mg/dL (74-99); Lipase 71 U/L (23-300); Non-African American GFR(CKD) >90 (>60 ml/min/1.73 sqM); Potassium 4.3 mmol/L (3.5-5.1); Sodium 141 mmol/L (137-145); Total Bilirubin 0.7 mg/dL (0.2-1.3); Total Protein 7.7 g/dL (6.3-8.2)
--- NOTE | 2021-07-13 15:15 | XR ---
EXAMINATION TYPE: XR chest 2V DATE OF EXAM: 07/13/2021 COMPARISON: 04/26/2019 HISTORY: Abdominal pain TECHNIQUE: 2 view FINDINGS: There is some atelectasis left lung base. Heart size is normal. Right lung is clear. There are no hilar masses. Diaphragm is elevated. IMPRESSION: There is some atelectasis left lung base which is mostly new compared to old exam. Normal heart.
--- NOTE | 2021-07-13 15:42 | CT ---
EXAMINATION TYPE: CT abdomen pelvis w con DATE OF EXAM: 07/13/2021 COMPARISON: None HISTORY: umbilical hernia CT DLP: 1483 mGycm Automated exposure control for dose reduction was used. CONTRAST: Performed with IV Contrast, patient injected with 100 mL of Isovue 300. Images obtained from the diaphragm to the floor the pelvis with IV contrast. There is some mild atelectasis left lung base. Heart size is normal. There is no pericardial effusion . The stomach is intact. Spleen is intact. There is no pancreatic mass. Gallbladder appears normal. T he bile ducts are not dilated. Liver shows no focal defect There is no adrenal mass. Kidneys show satisfactory contrast opacification. There is no hydronephrosi s. There is 2 cm cortical cyst posterior left kidney. There are left-sided renal parapelvic cyst. Del ayed images show normal renal excretion. No hydronephrosis. Ureters are not dilated. There is no retr operitoneal adenopathy. Bladder distends smoothly. There is metal artifact from left hip prosthesis. There is no inguinal hernia. There are phleboliths in the pelvis. There is no sign of a pelvic mass. Appendix is inferior and appears normal. The lumbar vertebrae have normal alignment. There is no compression fracture. Posterior elements are intact. Bony pelvis is intact. Right hip joint is intact. There is no mesenteric edema. There is no ascites or free air. There are some mildly distended small bowel loops up to 3 cm in the upper abdomen. IMPRESSION: There is some mild atelectasis left lung base. There is evidence for some minimal small bowel ileus i n the upper abdomen. No evidence of umbilical hernia.
[2021-07-13] MEDS ORDERED: KETOROLAC 15 MG/ML 1 ML VIAL IVP STA (17:09)
[2021-07-13 17:19] LABS: Appearance,Urine Clear (Clear); Bilirubin,Urine Negative (Negative); Blood,Urine Negative (Negative); Color,Urine Light Yellow; Glucose,Urine (UA) Negative (Negative); Ketones,Urine Negative (Negative); Leukocyte Esterase,Urine Negative (Negative); Nitrite,Urine Negative (Negative); PH, Urine 5.5 (5.0-8.0); Protein,Urine Negative (Negative); Urobilinogen,Urine <2.0 mg/dL (<2.0)
[2021-07-13 17:25] LABS: Specific Gravity,Urine >1.050 (1.001-1.035)
[2021-07-13 17:48] VITALS: BP 138/77; PULSE 78; RESP 16
== END 2021-07-13 17:58 | disposition home or self-care (01) ==
LOC: EC 13:21
DX: R10.9 Unspecified abdominal pain (principal); K21.9 Gastro-esophageal reflux disease without esophagitis; Z79.83 Long term (current) use of bisphosphonates; Z88.8 Allergy status to other drugs, medicaments and biological substances
CPT/HCPCS: 36415; 80053; 83605; 83690; 85025; 81003; 71046; 74177; 99284; 96374; 96375; 96361; J2270; J2405; J1885; Q9967

== ENCOUNTER 2022-04-10 09:52 | Emergency (ER) | payer MEDICARE, OTHER ==
[2022-04-10 09:59] VITALS: TEMP 98.1
--- NOTE | 2022-04-10 10:18 | XR ---
EXAMINATION TYPE: XR chest 2V DATE OF EXAM: 04/10/2022 COMPARISON: 07/13/2021 INDICATION: Cough TECHNIQUE: Frontal and lateral views of the chest are obtained. FINDINGS: The heart size is normal. The pulmonary vasculature is normal. The lungs are clear. IMPRESSION: 1. No acute pulmonary process.
[2022-04-10] MEDS ORDERED: ALBUTEROL NEBULIZED 2.5 MG/3 ML INHALATION STA (11:25)
--- NOTE | 2022-04-10 11:32 | ED ---
URI HPI - General Chief Complaint: Upper Respiratory Infection Stated Complaint: Congestion,Fever,Chills Time Seen by Provider: 04/10/22 11:13 Source: patient, RN notes reviewed Mode of arrival: ambulatory Limitations: no limitations - History of Present Illness Initial Comments: Patient is a pleasant 62-year-old male presenting to the emergency room with complaint of cough and congestion along with generalized malaise ongoing for 4 days. He reports known exposure to RSV as he cares for his grandson who recently tested positive. He denies any COVID or influenza exposure. He does report shortness of breath after coughing spells but denies any shortness of breath without a coughing spell. He reports that the cough makes him nauseated at times but denies any abdominal pain or vomiting. He denies any known fevers but does report feeling well warm at times and having chills at times. He denies any chest pain, lethargy or altered mental status. He is concerned as his congestion is making it difficult for him to utilize his CPAP which he must utilize for obstructive sleep apnea. In addition to his CARMENCITA history his past medical history significant for GERD and hyperlipidemia. - Related Data Home Medications Medication Instructions Recorded Confirmed Metoprolol Tartrate [Lopressor] 25 mg PO BID 03/24/19 08/21/20 Escitalopram [Lexapro] 20 mg PO DAILY 09/21/19 08/21/20 Vitamin B Complex 1 each PO DAILY 09/21/19 08/21/20 Cholecalciferol [Vitamin D3 (25 5,000 unit PO DAILY 12/04/19 08/21/20 Mcg = 1000 Iu)] Hydrocortisone Cream 1 applic TOPICAL DAILY PRN 12/04/19 08/21/20 [Hydrocortisone 2.5% Cream] Ibuprofen [Motrin] 800 mg PO Q8H PRN 12/04/19 08/21/20 Krill/Om-3/Dha/Epa/Phospho/Ast 1 each PO DAILY 12/04/19 08/21/20 [[place]-3 Krill Oil 300 mg Sfgl] Melatonin [Melatonin ER] 10 mg PO HS PRN 12/04/19 08/21/20 Omeprazole [PriLOSEC] 40 mg PO DAILY 12/04/19 08/21/20 Allergies Allergy/AdvReac Type Severity Reaction Status Date / Time pseudoephedrine Allergy nervousness Verified 04/10/22 09:59 Yxyhsdz-TIZ-AaT Reductase Allergy muscle pain Verified 04/10/22 09:59 Inhibitor [Ucnsoju-Orc-Hbe Reductase Inhibitor] Review of Systems ROS Statement: Those systems with pertinent positive or pertinent negative responses have been documented in the HPI. ROS Other: All systems not noted in ROS Statement are negative. Past Medical History Past Medical History: GERD/Reflux, Hyperlipidemia, Sleep Apnea/CPAP/BIPAP Additional Past Medical History / Comment(s): received 1 rst dose moderna vaccine,hernia upper mid abdomen, Chronic cough after eating, stabbing pain in abdomen with occasional bright red bleeding on outer stools, skin irritation to groin, CPAP use,has a paralyzed left side diaphragm History of Any Multi-Drug Resistant Organisms: None Reported Past Surgical History: Joint Replacement, Orthopedic Surgery Additional Past Surgical History / Comment(s): Pin in left shoulder, bisi carpal tunnel surgery,left hip replacement Past Anesthesia/Blood Transfusion Reactions: No Reported Reaction Additional Past Anesthesia/Blood Transfusion Reaction / Comment(s): Unsure of family hx. Past Psychological History: No Psychological Hx Reported Smoking Status: Never smoker Past Alcohol Use History: None Reported Past Drug Use History: None Reported - Past Family History Mother Family Medical History: No Reported History General Exam Limitations: no limitations General appearance: alert, in no apparent distress Head exam: Present: atraumatic, normocephalic, normal inspection Eye exam: Present: normal appearance, PERRL, EOMI. Absent: scleral icterus, conjunctival injection, periorbital swelling ENT exam: Present: mucous membranes moist, other (Nasal congestion) Neck exam: Present: normal inspection, full ROM Respiratory exam: Present: wheezes (Inspiratory improves with cough), other (Occasional productive cough). Absent: respiratory distress, rales, rhonchi, accessory muscle use Cardiovascular Exam: Present: regular rate, normal rhythm, normal heart sounds. Absent: systolic murmur, diastolic murmur, rubs, gallop, clicks GI/Abdominal exam: Present: soft, normal bowel sounds. Absent: distended, tenderness, guarding, rebound, rigid Extremities exam: Present: normal inspection. Absent: pedal edema, joint swelling Back exam: Present: normal inspection Neurological exam: Present: alert, oriented X3, CN II-XII intact Psychiatric exam: Present: normal affect, normal mood Skin exam: Present: warm, dry, intact, normal color. Absent: rash Course Vital Signs 04/10/22 04/10/22 09:57 12:24 Temperature 98.1 F Pulse Rate 62 77 Respiratory 22 18 Rate Blood Pressure 142/79 144/80 O2 Sat by Pulse 96 95 Oximetry Medical Decision Making - Medical Decision Making 62-year-old male presenting to the emergency room with complaints of cough and congestion ongoing for 4 days after no nurse RSV exposure high probability for RSV. Saturating well without tachypnea with mild expiratory wheeze will order respiratory treatment along with chest x-ray RSV, COVID and influenza swab. No indication for further laboratory studies at this time. No indication for IV steroids or IV antibiotics. Not requiring supplemental oxygen. RSV swab positive, Covid and influenza negative. Chest x-ray interpreted by me demonstrates no acute pulmonary disease. No bronchiolitis will cancel respiratory treatment. Radiologist's report also reviewed. Results discussed with patient at length. Discussed symptomatic management for RSV and typical duration of illness. Will discharge home in stable condition with ove [id number] symptomatically management including nasal suctioning, decongestions for congestion, Tylenol or ibuprofen as needed for fevers. Case discussed with Dr. Gold - Lab Data Lab Results 04/10/22 04/10/22 04/10/22 Range/Units 10:01 10:01 10:01 Coronavirus (PCR) Not Detected (Not Detectd) Influenza Type A RNA Not Detected (Not Detectd) Influenza Type B (PCR) Not Detected (Not Detectd) RSV (PCR) Positive H (Negative) - Radiology Data Radiology results: report reviewed, image reviewed Disposition Clinical Impression: RSV bronchiolitis Disposition: HOME SELF-CARE Condition: Stable Instructions (If sedation given, give patient instructions): Respiratory Syncytial Virus (ED), Upper Respiratory Infection (ED) Additional Instructions: Please utilize [id number]-[id number] ibuprofen or Tylenol as needed for fevers and pain. Decongestants and [id number] cough suppressants are recommended as needed for nasal congestion. Please follow-up with your primary care provider once her afebrile for greater than 24 hours without the use of fever reducing agents. Please return to the Emergency Department if symptoms worsen or any other concerns. Is patient prescribed a controlled substance at d/c from ED?: No Referrals: Adama Pal MD [Primary Care Provider] - 1-2 days Time of Disposition: 11:54
[2022-04-10 12:25] VITALS: BP 144/80; PULSE 77; RESP 18
== END 2022-04-10 12:24 | disposition home or self-care (01) ==
LOC: EC 09:52
DX: J21.0 Acute bronchiolitis due to respiratory syncytial virus (principal); K21.9 Gastro-esophageal reflux disease without esophagitis; G47.30 Sleep apnea, unspecified; Z88.8 Allergy status to other drugs, medicaments and biological substances; Z79.899 Other long term (current) drug therapy; Z20.822 Contact with and (suspected) exposure to COVID-19
CPT/HCPCS: 71046; 87502; 87634; 87635; 99283

== ENCOUNTER → 2022-06-08 | Outpatient (CLI) | payer MEDICARE, OTHER ==
[2022-06-08 19:23] LABS: ALT 46 U/L (10-49); AST 35 U/L (14-35); Chol/HDL Ratio 5.26 Ratio; LDL Cholesterol,Calculated 120.2 mg/dL (0.0-131.0)
== END | disposition home or self-care (01) ==
LOC: LABWHC1 11:37
PROVIDERS: ATTEND Internal Medicine Interventional Cardiology
DX: E78.2 Mixed hyperlipidemia (principal)
CPT/HCPCS: 36415; 80061; 84450; 84460

== ENCOUNTER → 2024-01-24 | Outpatient (CLI) | payer MEDICARE, OTHER ==
[2024-01-24 13:50] LABS: INR 0.9 (<1.2); Partial Thromboplastin Time 27.7 sec (22.0-30.0); Prothrombin Time 10.3 sec (10.0-12.5)
[2024-01-24 15:37] LABS: ALT 26 U/L (10-49); AST 24 U/L (14-35); Albumin 4.8 g/dL (3.8-4.9); Albumin/Globulin Ratio 1.85 Ratio (1.60-3.17); Alkaline Phosphatase 81 U/L (41-126); BUN/Creat Ratio 12.67 Ratio (12.00-20.00); Blood Urea Nitrogen 11.4 mg/dL (9.0-27.0); Calcium 10.4 mg/dL (8.7-10.3); Carbon Dioxide 21.2 mmol/L (21.6-31.8); Chloride 104 mmol/L (96-109); Globulin 2.6 g/dL (1.6-3.3); Glucose 90 mg/dL (70-110); Potassium 4.2 mmol/L (3.5-5.5); Sodium 139 mmol/L (135-145); Total Bilirubin 0.8 mg/dL (0.3-1.2); Total Protein 7.4 g/dL (6.2-8.2)
[2024-01-24 16:55] LABS: HCT 49.6 % (39.6-50.0); HGB 16.6 g/dL (13.0-17.0); MCH 29.2 pg (27.0-32.0); MCHC 33.5 g/dL (32.0-37.0); MCV 87.2 FL (80.0-97.0); Mean Platelet Volume 11.2 FL (9.5-12.2); NRBC Per 100 WBC 0 X 10*3/uL (0.00-0.01); Platelet Count 294 X 10*3/uL (140-440); RBC 5.69 X 10*6/uL (4.40-5.60); RDW 12.9 % (11.5-14.5); WBC 10.76 X 10*3/uL (4.50-10.00)
== END | disposition home or self-care (01) ==
LOC: LABPAT 13:08
PROVIDERS: ATTEND Orthopaedic Surgery
DX: Z01.812 Encounter for preprocedural laboratory examination (principal)
CPT/HCPCS: 36415; 80053; 85027; 85610; 85730; 86850; 86900; 86901; 87070

== ENCOUNTER → 2024-02-07 | Outpatient (CLI) | payer MEDICARE | END | disposition home or self-care (01) | LOC: LABPAT 14:50 | PROVIDERS: ATTEND Orthopaedic Surgery | DX: Z01.818 Encounter for other preprocedural examination (principal) | CPT/HCPCS: 36415; 86850; 86900; 86901 ==

== ENCOUNTER 2024-02-15 08:33 | Day surgery (SDC) | payer MEDICARE, OTHER ==
[~2024-02-15 08:33] MED LIST changes: +ACETAMINOPHEN TAB 500 MG TAB PO PRN; +GABAPENTIN 300 MG CAP PO PRN; +HYDROmorphone 0.5 MG/0.5 ML SYRINGE IVP PRN; -LACTATED RINGERS 1,000 ML IV SCH; -LIDOCAINE 1% (10MG/ML) FOR IV START INTRADERMA PRN; +MELOXICAM 7.5 MG TAB PO PRN; +TRANEXAMIC 1,000 MG/100ML-NACL 1,000 MG in SALINE 1 100ML.BAG IVPB PRN
[2024-02-15] MEDS: IV FLUID CONTINUATION 1,000 ML IV ONE (09:50)
[2024-02-15] MEDS: LACTATED RINGERS 1,000 ML IV SCH (09:50)
[2024-02-15] MEDS: MELOXICAM 7.5 MG TAB PO PRN (09:54)
[2024-02-15] MEDS: GABAPENTIN 300 MG CAP PO PRN (09:54)
[2024-02-15] MEDS: ACETAMINOPHEN TAB 500 MG TAB PO PRN (09:54)
[2024-02-15] MEDS: DEXAMETHASONE SOD PHOSPHATE 4 MG/ML 1 ML VIAL IV ONE (09:55)
[2024-02-15] MEDS: ONDANSETRON 4 MG/2 ML VIAL IVP ONE (09:56)
[2024-02-15] MEDS: MIDAZOLAM 2 MG/2 ML VIAL IV PRN (10:29)
[2024-02-15] MEDS: fentaNYL (PF) 50 MCG/ML 2 ML AMP IVP PRN (10:30)
[2024-02-15] MEDS ORDERED: GLYCOPYRROLATE 0.2 MG/ML 2 ML VIAL ONE (11:01)
[2024-02-15] MEDS ORDERED: TRANEXAMIC 1,000 MG/100ML-NACL PREMIX BAG ONE (11:01)
[2024-02-15] MEDS ORDERED: ROPIVACAINE 5 MG/ML 30 ML VIAL ONE (11:01)
[2024-02-15] MEDS ORDERED: PHENYLEPHRINE-0.9% NACL SYG 1,000 MCG/10 ML SYRINGE ONE (11:01)
[2024-02-15] MEDS ORDERED: PROPOFOL 10 MG/ML 20 ML VIAL IV ONE (11:01)
[2024-02-15] MEDS ORDERED: fentaNYL (PF) 50 MCG/ML 2 ML AMP ONE (11:01)
[2024-02-15] MEDS ORDERED: MIDAZOLAM 2 MG/2 ML VIAL ONE (11:01)
[2024-02-15] MEDS: ceFAZolin 1,000 MG in SODIUM CHLORIDE 0.9% 1,000 ML IRRIGATION ONE (11:06)
[2024-02-15] MEDS: ROPIVACAINE 5 MG/ML 30 ML VIAL MISCELLANE ONE ×3 (11:06→12:12)
--- NOTE | 2024-02-15 11:42 | P.ANPRN ---
Procedure Note - Anesthesia - Nerve Block Performed Right Manjinder Single Time Out Performed: Yes (1028) Date of Procedure: 02/15/24 Procedure Start Time: : Procedure Stop Time: :33 Location of Patient: PreOp Indication: Acute Post-Operative Pain, Requested by Surgeon Specifically requested for management of pain by DrTima: Ryan Bourne Sedation Type: Sedate with meaningful contact maintained Preparation: Sterile Prep Position: Supine Catheter: None Needle Types: Pajunk Needle Gauge: 21 Ultrasound used to visualize needle placement: Yes Ultrasound used to observe medication spread: Yes Injectate: 0.5% Ropivacaine (see comment for volume) (30cc) Blood Aspirated: No Pain Paresthesia on Injection Noted: No Resistance on Injection: Normal Image Stored and Saved: Yes Events: Uneventful and Well Tolerated
[2024-02-15] MEDS: LACTATED RINGERS 1,000 ML IV ONE ×2 (12:03→13:24)
--- NOTE | 2024-02-15 12:16 | P.OP ---
Date of Procedure: 02/15/24 Preoperative Diagnosis: Severe osteoarthritis right hip Postoperative Diagnosis: Severe osteoarthritis, right hip Procedure(s) Performed: Right total hip arthroplasty with a direct anterior approach Implants: [employer] Polarstem standard size 4 with a collar [employer] R3, 3 hole hemispherical acetabular shell, 52 mm [employer] Reflection 6.5 mm cancellus screws, 20 mm 2 [employer] R3, XLPE 20 acetabular liner [employer] Oxinium femoral head 36 mm, -3 All components were press-fit. The articulation is Oxinium on polyethylene. Anesthesia: spinal Surgeon: Ryan Bourne [employer] Operations Consultant #1: Nora Ordoñez Estimated Blood Loss (ml): 350 Pathology: none sent Condition: stable Disposition: PACU Indications for Procedure: After failure of conservative treatment we discussed the surgical and non surgical treatment options at length. Patient wishes to proceed with a total hip arthroplasty with a direct anterior approach. Complications specific to this procedure were discussed at length, including but not limited to infection, leg length discrepancy, dislocation, nerve injury, and fracture. Covid-19 was also discussed at length with the patient, and they are aware of the current policies and procedures. The patient was given the option of delaying surgery, but they elect to proceed knowing these risks. Patient is aware of all these complications and informed consent was obtained Operative Findings: The operative findings are consistent with severe osteoarthritis of the right hip Description of Procedure: The patient was seen and evaluated in the preoperative area and the consent was reviewed. The operative site was marked with a skin marker. The patient verified the procedure and operative site. A CARMITA block was placed by anesthesia in the preoperative area. The patient was then brought to the operating room and given preoperative antibiotics intravenously. 1 g of Tranexamic acid was also given intravenously. A spinal anesthetic was administered by the anesthesia department. The patient was then placed on the Converse table with the bony prominences well-padded. The hip area was then prepped with a ChloraPrep solution and draped in the usual sterile fashion. A universal timeout was then performed, which confirmed the patient's name, surgical site, ALLERGIES, and procedure being performed on the consent. Next the incision site was located at 1 cm distal and 4 cm lateral to the anterior superior iliac spine. The skin and subcutaneous tissues were sharply incised. Incision was carefully dissected down to the fascia overlying the tensor fascia rama muscle. This fascia was then incised in line with the muscle fibers. Care was taken to stay laterally in order to avoid injuring the lateral femoral cutaneous nerve. Next, using blunt finger dissection, the tensor fascia rama muscle was dissected off its investing fascia. The muscle was then carefully retracted laterally with a cobra retractor over the lateral neck of the femur. Next, the circumflex vessels were identified and cauterized using the Aquamantis device. The anterior hip capsule was then exposed. The capsule was then opened and an inverted T fashion. The retractors were then placed intracapsularly. The retractors were maintained intracapsular throughout the procedure. The proximal femur was then visualized. Fluoroscopic x-rays were then taken in order to evaluate the preoperative leg lengths. A small amount of traction was placed on the leg. The femoral neck was then osteotomized at the appropriate level above the lesser trochanter. A small wedge of bone was then removed from the remaining femoral head. Next, using a corkscrew the femoral head was removed from the acetabulum. On gross visual inspection, the femoral head had complete loss of articular cartilage and multiple periarticular osteophytes. The femoral head was then measured. Attention was then turned to the acetabulum. The acetabulum was exposed and any remaining labrum was excised. Sequential reaming of the acetabulum was performed using fluoroscopic guidance until there was a good bed of bleeding cancellus bone. When the appropriate size was reached, a trial was then placed. The position and fit of the trial was checked with fluoroscopy. The trial was then removed. Then, using fluoroscopic guidance, the final implant was impacted at 20 of anteversion and 40 of abduction, and fully seated in the acetabulum. 2 screws were then placed in the acetabulum. Again fluoroscopy was used to check position of the screws. Next, the liner was then impacted, with a 20 elevated liner located in the anterior superior quadrant. Component locking was confirmed. Attention was then directed to the femur. With the aid of the Converse table, the femur was externally rotated to approximately 130, extended, and adducted under the opposite leg. A side hook was then placed under the proximal femur, and the side hook elevator was used to elevate the proximal femur while releasing the capsule. Retractors were then placed. A capsular release was performed, as well as a release of the conjoined tendon, which afforded excellent visualization of the proximal femur. Next, a box osteotome was used to lateralize the proximal femur. A hand iii cutter was then used to locate the femoral canal. Sequential broaching was then performed with appropriate size which afforded excellent fixation in the proximal femur. A trial was then placed with appropriate head and neck, and the hip was gently reduced with the aid of the Converse table. Fluoroscopy was then used to check position of the components, as well as to evaluate the leg lengths and offset. The leg lengths and offset were measured as closely as possible to ensure stability of the hip. The hip was then gently dislocated and the trials were then removed. Final implants were then impacted and the hip was again reduced. Final fluoroscopic x-rays confirmed that the components were in anatomic position. The leg lengths and offset were measured and were found to coincide with the trial measurements. The hip was also taken through range of motion, and found to be stable. The hip was then copiously irrigated with antibiotic solution with pulsatile lavage. The hip was then irrigated with Irrisept solution. The soft tissues were then injected with a ropivacaine solution. A second dose of 1 g of Tranexamic acid was also given intravenously. The fascia was then closed with 2-0 strata fix suture. The subcutaneous tissue was closed with 3-0 Vicryl. The subcuticular tissue was closed with 3-0 strata fix suture. The skin was then closed with Exofin skin glue. After the glue and dried, and Optifoam silver impregnated dressing was applied. The patient was then transferred to the recovery room in stable condition. The budget assistant ZURDO Wright was required due to the complexity of surgery, and the need for skilled rn surgical pcu for positioning, draping, exposure, retraction, and closure of the wound.
[2024-02-15] MEDS ORDERED: HYDROmorphone 0.5 MG/0.5 ML SYRINGE IVP PRN (12:43)
[2024-02-15] MEDS ORDERED: ONDANSETRON 4 MG/2 ML VIAL IVP PRN (12:43)
[2024-02-15] MEDS ORDERED: NALOXONE 0.4 MG/ML 1 ML VIAL IV PRN (12:43)
[2024-02-15] MEDS ORDERED: HYDROmorphone 1 MG/ML 1 ML SYRINGE IVP PRN (12:43)
[2024-02-15] MEDS ORDERED: MAGNESIUM HYDROXIDE 2,400 MG/30 ML CUP PO PRN (12:43)
--- NOTE | 2024-02-15 13:35 | FL ---
Fluoroscopy History: OA RIGHT HIP RT HIP totally arthroplasty. 31 secs DAP 1.5829. [facility], , 02/15/2024 1:33 PM
--- NOTE | 2024-02-15 13:37 | XR ---
Fluoroscopy History: OA RIGHT HIP RT HIP totally arthroplasty. 31 secs DAP 1.5829 [facility], , 02/15/2024 1:35 PM
[2024-02-15] MEDS: SCOPOLAMINE 1 MG/72 HR PATCH TRANSDERM ONE (15:28)
[2024-02-15] MEDS: HYDROcodone/APAP 7.5-325MG 1 EACH TAB PO PRN (17:29)
--- NOTE | 2024-02-15 18:37 | P.CONS ---
History of Present Illness - Reason for Consult Consult date: 02/15/24 Medical Management Requesting physician: Ryan Bourne - History of Present Illness History of Presenting Illness: Patient is a very pleasant 64-year-old male with a past medical history of hypertension, hyperlipidemia, GERD, obstructive sleep apnea CPAP dependent nightly, and osteoarthritis. He is currently status post elective right total hip arthroplasty secondary to severe osteoarthritis of right hip. Surgical procedure was completed by Dr. Bourne. We were consulted for medical management throughout hospitalization. Patient was seen and fully evaluated in room 462 upon completion of surgical procedure. He remains slightly drowsy from procedure and states just feeling tired. Patient has home CPAP machine at bedside and currently using. Patient reports controlled postoperative pain and denies having any nausea or vomiting. He denies urinating since completion of surgical procedure, but states he has not yet attempted. Patient denies having any headache, lightheadedness, dizziness, chest pain, palpitations, shortness of breath, or experiencing any numbness or focal weakness in his extremities. Review of systems: Pertinent positives and negatives as discussed in HPI, a complete review of systems was performed and all other systems are negative. Physical exam: Vital signs reviewed and stable. General: Nontoxic, no distress and appears stated age. Derm: Skin warm and dry, normal coloration for ethnicity. Head: Atraumatic, normocephalic and symmetric. Eyes: EOM's intact, no lid lag, and anicteric sclera Mouth: no lip lesions, mucus membranes moist Cardiovascular: regular rate and rhythm with normal S1S2, no murmur, positive posterior tibial pulses bilaterally, and cap refill < 2 seconds. Lungs: Respirations even, regular, and unlabored on room air. Lungs CTA bilaterally, no rhonchi, no rales, no wheezing, and no accessory muscle usage. Abdominal: soft, nontender to palpation, no guarding, no appreciable organomegaly Ext: No gross muscle atrophy, no edema, no contractures. Movement and sensation intact. Dressing and ice pack in place to right hip. Neuro: Speech clear, face symmetrical and CN II-XII grossly intact with no noted focal neuro deficits Psych: Alert and oriented to person, place, time, and situation. Appropriate and pleasant affect. Assessment and Plan of Care: Status post right total hip arthroplasty Management per primary admitting orthopedic surgery team including DVT prophylaxis, pain management, wound/dressing management, weightbearing, and PT/OT. Patient currently on DVT prophylaxis with aspirin 325 mg twice daily. Hypertension Monitor vital signs and continue daily medication regimen with metoprolol 25 mg twice daily. Hyperlipidemia Continue daily medication regimen with rosuvastatin 20 mg daily and Zetia 10 mg daily. Obstructive sleep apnea CPAP dependent Continue use of home CPAP nightly and while napping. Data reviewed: Reviewed operative report. Reviewed preoperative labs. CBC showing WBC count 10.76, hemoglobin 16.6, platelet count of 294. Vital signs reviewed. Blood pressure 124/74, heart rate 55, respiratory rate 16, and SpO2 of 96% on room air. Thank you for allowing us to participate in the care of this pleasant patient. Do not hesitate to contact us with questions. Someone can be reached from the [facility] hospitalist group all hours of the day at [phone] or via [employer]. Patient was seen independently by Nurse Practitioner. This document was prepared using [employer] dictation software. Please allow for errors in needleworker while rare they do occur. I reviewed the documentation as provided by the GASPER above, who is the original author of this note. I agree with the documented assessment and plan, with the following changes: none Past Medical History Past Medical History: GERD/Reflux, Hyperlipidemia, Sleep Apnea/CPAP/BIPAP Additional Past Medical History / Comment(s): received 1 rst dose moderna vaccine,hernia upper mid abdomen, Chronic cough after eating, stabbing pain in abdomen with occasional bright red bleeding on outer stools, skin irritation to groin, CPAP use,has a paralyzed left side diaphragm History of Any Multi-Drug Resistant Organisms: None Reported Past Surgical History: Joint Replacement, Orthopedic Surgery Additional Past Surgical History / Comment(s): Pin in left shoulder, bisi carpal tunnel surgery,left hip replacement Past Anesthesia/Blood Transfusion Reactions: No Reported Reaction Additional Past Anesthesia/Blood Transfusion Reaction / Comm: Unsure of family hx. Past Psychological History: No Psychological Hx Reported Smoking Status: Never smoker Past Alcohol Use History: None Reported Past Drug Use History: None Reported - Past Family History Mother Family Medical History: No Reported History Medications and Allergies Home Medications Medication Instructions Recorded Confirmed Type Metoprolol Tartrate [Lopressor] 25 mg PO BID 03/24/19 02/15/24 History Escitalopram [Lexapro] 20 mg PO DAILY 09/21/19 02/15/24 History Vitamin B Complex 1 each PO DAILY 09/21/19 02/15/24 History Cholecalciferol [Vitamin D3 (25 5,000 unit PO DAILY 12/04/19 02/15/24 History Mcg = 1000 Iu)] Krill/Om-3/Dha/Epa/Phospho/Ast 1 each PO DAILY 12/04/19 02/15/24 History [[place]-3 Krill Oil 300 mg Sfgl] Ezetimibe [Zetia] 10 mg PO DAILY 01/26/24 02/15/24 History Rosuvastatin [Crestor] 20 mg PO DAILY 01/26/24 02/15/24 History Acetaminophen [Tylenol Arthritis] 1 tab PO Q8H PRN 02/09/24 02/15/24 History HYDROcodone/APAP 5-325MG [[place] 1 tab PO TID PRN 02/09/24 02/15/24 History 5-325] Aspirin 325 mg PO BID #60 tab 02/15/24 Rx HYDROcodone/APAP 7.5-325MG [[place] 1 - 2 tab PO Q6H PRN #32 tab 02/15/24 Rx 7.5-325] Sennosides [Senokot] 2 tab PO DAILY PRN #60 tablet 02/15/24 Rx Allergies Allergy/AdvReac Type Severity Reaction Status Date / Time pseudoephedrine Allergy nervousness Verified 02/15/24 09:26 Guqudkx-UUH-PeL Reductase AdvReac muscle pain Verified 02/15/24 09:26 Inhibitor [Wtazxfa-Xmi-Kei Reductase Inhibitor] Physical Exam Vitals: Vital Signs Temp Pulse Resp BP Pulse Ox 02/15/24 13:52 107/73 02/15/24 13:45 64 13 102/59 96 02/15/24 13:30 55 L 16 97/53 97 02/15/24 13:15 60 14 98/60 97 02/15/24 13:00 70 14 98/63 94 L 02/15/24 12:45 65 15 93/53 97 02/15/24 12:40 68 15 95 02/15/24 12:35 97.1 F L 72 8 L 76/48 96 02/15/24 10:41 56 L 16 128/74 95 02/15/24 09:37 97.6 F 59 L 18 135/73 97 Intake and Output 1002/15/24 02/15/24 22:59 06:59 14:59 Intake Total 3150 Output Total 350 Balance 2800 Intake: IV 3150 Output: Estimated Blood Loss 350 Other: Weight 86 kg
[2024-02-15] MEDS: ASPIRIN 325 MG TAB PO SCH (21:47)
[2024-02-15] MEDS: METOPROLOL TARTRATE 25 MG TAB PO SCH (21:48)
[2024-02-15] MEDS: HYDROmorphone 0.5 MG/0.5 ML SYRINGE IVP PRN (21:48)
[2024-02-15] MEDS: SENNOSIDES-DOCUSATE SODIUM 1 EACH TAB PO SCH (21:48)
[2024-02-15] MEDS: SODIUM CHLORIDE 0.9% 1,000 ML IV SCH (23:03)
[2024-02-16] MEDS: HYDROcodone/APAP 7.5-325MG 1 EACH TAB PO PRN (01:05)
[2024-02-16 08:36] VITALS: BP 119/55; PULSE 66; RESP 17; TEMP 98.5
[2024-02-16] MEDS ORDERED: NON FORMULARY DRUG (Vitamin B Complex [Vitamin B Complex] 1 EACH Capsule) PO SCH (09:00)
[2024-02-16] MEDS: ESCITALOPRAM 20 MG TAB PO SCH (09:25)
[2024-02-16] MEDS: EZETIMIBE 10 MG TAB PO SCH (09:25)
[2024-02-16] MEDS: NON FORMULARY DRUG (Rosuvastatin 20 MG Tablet) PO SCH (09:26)
--- NOTE | 2024-02-16 10:03 | P.DS ---
Providers Expected date of discharge: 02/16/24 Attending physician: Ryan Bourne Consults: 02/15/24 12:43 Consult Physician Routine Consulting Provider: Pam Farley Consult Reason/Comments: medical management Do you want consulting provider notified?: Yes Primary care physician: Adama Pal MD - Discharge Diagnosis(es) (1) Osteoarthritis of right hip Current Visit: Yes Status: Acute (2) S/P total right hip arthroplasty Current Visit: Yes Status: Acute Hospital Course: This is a 64-year-old male with known history of degenerative arthritis of the right hip. The patient presented for evaluation as an outpatient. After discussion and consideration patient elects to proceed with total hip arthroplasty. The patient is seen preoperatively by Dr. Bourne and medically cleared for surgery by their primary care physician. Patient is admitted to [facility] on 02/15/2024 for total hip arthroplasty. The procedure is performed without complication or sequelae. The patient is doing well postoperatively. Labs and vital signs are stable on day of discharge. On day of discharge patient's hip incision is healing well. There is minimal erythema. There is no drainage noted at this time. There is minimal soft tissue swelling to the hip and thigh. Patient has full foot and ankle motion without difficulty or pain. Calf is soft and nontender to palpation. Neurovascular status to the right lower extremity is intact. Patient is discharged home in good condition. Please see med rec for accurate list of home medications. Plan - Discharge Summary Discharge Rx Participant: Yes New Discharge Prescriptions: New Sennosides [Senokot] 2 tab PO DAILY PRN #60 tablet PRN Reason: Constipation Aspirin 325 mg PO BID #60 tab HYDROcodone/APAP 7.5-325MG [[place] 7.5-325] 1 - 2 tab PO Q6H PRN #32 tab PRN Reason: Pain No Action Metoprolol Tartrate [Lopressor] 25 mg PO BID Escitalopram [Lexapro] 20 mg PO DAILY Vitamin B Complex 1 each PO DAILY Krill/Om-3/Dha/Epa/Phospho/Ast [[place]-3 Krill Oil 300 mg Sfgl] 1 each PO DAILY Cholecalciferol [Vitamin D3 (25 Mcg = 1000 Iu)] 5,000 unit PO DAILY Acetaminophen [Tylenol Arthritis] 1 tab PO Q8H PRN PRN Reason: Pain HYDROcodone/APAP 5-325MG [[place] 5-325] 1 tab PO TID PRN PRN Reason: Pain Rosuvastatin [Crestor] 20 mg PO DAILY Ezetimibe [Zetia] 10 mg PO DAILY Discharge Medication List Metoprolol Tartrate [Lopressor] 25 mg PO BID 03/24/19 [History] Escitalopram [Lexapro] 20 mg PO DAILY 09/21/19 [History] Vitamin B Complex 1 each PO DAILY 09/21/19 [History] Cholecalciferol [Vitamin D3 (25 Mcg = 1000 Iu)] 5,000 unit PO DAILY 12/04/19 [History] Krill/Om-3/Dha/Epa/Phospho/Ast [[place]-3 Krill Oil 300 mg Sfgl] 1 each PO DAILY 12/04/19 [History] Ezetimibe [Zetia] 10 mg PO DAILY 01/26/24 [History] Rosuvastatin [Crestor] 20 mg PO DAILY 01/26/24 [History] Acetaminophen [Tylenol Arthritis] 1 tab PO Q8H PRN 02/09/24 [History] HYDROcodone/APAP 5-325MG [[place] 5-325] 1 tab PO TID PRN 02/09/24 [History] Aspirin 325 mg PO BID #60 tab 02/15/24 [Rx] HYDROcodone/APAP 7.5-325MG [[place] 7.5-325] 1 - 2 tab PO Q6H PRN #32 tab 02/15/24 [Rx] Sennosides [Senokot] 2 tab PO DAILY PRN #60 tablet 02/15/24 [Rx] Follow up Appointment(s)/Referral(s): Ryan Bourne DO [Doctor of Osteopathic Medicine] - 2 Weeks Patient Instructions/Handouts: Anterior Hip Replacement (DC) Activity/Diet/Wound Care/Special Instructions: Weightbearing as tolerated with walker. Leave dressing intact. Dressing may be removed by home care nurse or by patient in 7 days. Then change dressing twice daily until follow up. May shower with initial dressing intact and after removal. If dressing become saturated, please remove. Please take aspirin 325mg twice daily for 30 days to prevent blood clots. Recommend use of compression stockings daily until follow up to help prevent swelling and blood clots. May remove at night before sleeping. Please follow-up with [facility] in 2 weeks and call with any questions or concerns, . Discharge Disposition: HOME WITH HOME HEALTH SERVICES
[2024-02-16 10:49] LABS: HCT 36.7 % (39.6-50.0); HGB 12.1 g/dL (13.0-17.0); MCH 28.1 pg (27.0-32.0); MCV 85.2 FL (80.0-97.0); Mean Platelet Volume 10.6 FL (9.5-12.2); NRBC Per 100 WBC 0 X 10*3/uL (0.00-0.01); Platelet Count 230 X 10*3/uL (140-440); RBC 4.31 X 10*6/uL (4.40-5.60); RDW 12.7 % (11.5-14.5); WBC 13.01 X 10*3/uL (4.50-10.00)
[2024-02-16 10:57] LABS: BUN/Creat Ratio 15.11 Ratio (12.00-20.00); Blood Urea Nitrogen 13.6 mg/dL (9.0-27.0); Calcium 8.9 mg/dL (8.7-10.3); Carbon Dioxide 24.4 mmol/L (21.6-31.8); Chloride 104 mmol/L (96-109); Glucose 113 mg/dL (70-110); Magnesium 1.7 mg/dL (1.5-2.4); Sodium 140 mmol/L (135-145)
--- NOTE | 2024-02-16 10:57 | P.PN ---
Subjective Progress Note Date: 02/16/24 Hospital course:: Patient is a very pleasant 64-year-old male with a past medical history of hypertension, hyperlipidemia, GERD, obstructive sleep apnea CPAP dependent nightly, and osteoarthritis. He is currently status post elective right total hip arthroplasty secondary to severe osteoarthritis of right hip. Surgical procedure was completed by Dr. Bourne. We were consulted for medical management throughout hospitalization. Physical exam: Patient was seen and fully evaluated at bedside. He was sitting up in the chair, denies having any complaints at this time. Reports postoperative pain is currently controlled with oral pain medication with [place]. Denies any postoper ative nausea and vomiting and denies having any difficulties with urination. Patient ambulated with physical therapy and reports doing well. Vital signs reviewed and stable. General: Nontoxic, no distress and appears stated age. Derm: Skin warm and dry, normal coloration for ethnicity. Head: Atraumatic, normocephalic and symmetric. Eyes: EOM's intact, no lid lag, and anicteric sclera Mouth: no lip lesions, mucus membranes moist Cardiovascular: regular rate and rhythm with normal S1S2, no murmur, positive posterior tibial pulses bilaterally, and cap refill < 2 seconds. Lungs: Respirations even, regular, and unlabored on room air. Lungs CTA bilaterally, no rhonchi, no rales, no wheezing, and no accessory muscle usage. Abdominal: soft, nontender to palpation, no guarding, no appreciable organomegaly Ext: No gross muscle atrophy, no edema, no contractures. Movement and sensation intact. Dressing and ice pack in place to right hip. Neuro: Speech clear, face symmetrical and CN II-XII grossly intact with no noted focal neuro deficits Psych: Alert and oriented to person, place, time, and situation. Appropriate and pleasant affect. Assessment and Plan of Care: Status post right total hip arthroplasty Management per primary admitting orthopedic surgery team including DVT prophylaxis, pain management, wound/dressing management, weightbearing, and PT/OT. Patient currently on DVT prophylaxis with aspirin 325 mg twice daily. Hypertension Monitor vital signs and continue daily medication regimen with metoprolol 25 mg twice daily. Hyperlipidemia Continue daily medication regimen with rosuvastatin 20 mg daily and Zetia 10 mg daily. Obstructive sleep apnea CPAP dependent Continue use of home CPAP nightly and while napping. Data reviewed: Postoperative Labs reviewed. CBC showing mild normocytic anemia with hemoglobin of 12.1. BMP and magnesium pending. Vital signs reviewed. Blood pressure pressure 119/55, heart rate 66, respiratory rate 17, temp 98.5 F, and SpO2 of 96% on room air. Patient medically optimized and stable from medical perspective for discharge once cleared by primary admitting orthopedic surgery team. Thank you for allowing us to participate in the care of this pleasant patient. Do not hesitate to contact us with questions. Someone can be reached from the [facility] hospitalist group all hours of the day at [phone] or via [employer]. Patient was seen independently by Nurse Practitioner. This document was prepared using [employer] dictation software. Please allow for errors in part time receptionist while rare they do occur. Patient was seen independently by Steve Baker NP. I agree with the assessment and plan as above. Objective - Vital Signs Vital signs: Vital Signs Temp 98.6 F 02/16/24 00:56 Pulse 64 02/16/24 00:56 Resp 18 02/16/24 00:56 BP 112/53 02/16/24 00:56 Pulse Ox 96 02/16/24 00:56 FiO2 Intake & Output 02/15/24 02/16/24 02/16/24 18:59 06:59 18:59 Intake Total 3270 Output Total 350 Balance 2920 Weight 86 kg Intake: IV 3150 Oral 120 Output: Estimated Blood Loss 350 Other: # Voids 2 - Labs CBC & Chem 7: 02/16/24 05:40 02/16/24 05:40
[2024-02-16 11:15] LABS: Basophils # (A) 0.02 X 10*3/uL (0.00-0.10); Basophils % (A) 0.2 %; Eosinophils # (A) 0.02 X 10*3/uL (0.04-0.35); Eosinophils % (A) 0.2 %; Lymphocytes # (A) 2.09 X 10*3/uL (0.90-5.00); Lymphocytes % (A) 16.1 %; Microcytosis (M) 2+; Monocytes # (A) 1.78 X 10*3/uL (0.20-1.00); Monocytes % (A) 13.7 %; Neutrophils # (A) 9.05 X 10*3/uL (1.80-7.70); Neutrophils % (A) 69.4 %
--- NOTE | 2024-02-18 16:09 | XR ---
EXAMINATION TYPE: XR Hip Limited RT DATE OF EXAM: 02/15/2024 CLINICAL HISTORY: pain TECHNIQUE: AP and frogleg views of the right hip are obtained. COMPARISON: None. FINDINGS: There is no acute fracture/dislocation evident. The joint space appears within normal li mits. The overlying soft tissue appears unremarkable. IMPRESSION: 1. There is no acute fracture or dislocation. ICD 10 NO FRACTURE, INITIAL EVALUATION [facility], , 02/18/2024 4:07 PM
== END 2024-02-16 12:52 | disposition home health service (06) ==
LOC: OR 08:33 → 4SSUR 12:40 → OR 02-16 12:52
PROVIDERS: ATTEND Orthopaedic Surgery
CPT/HCPCS: 64447; 73501; 80048; 83735; 85025

== ENCOUNTER → 2024-08-09 | Outpatient (CLI) | payer MEDICARE ==
[2024-08-09 15:13] LABS: ALT 82 U/L (10-49); AST 51 U/L (14-35); Chol/HDL Ratio 3.33 Ratio; LDL Cholesterol,Calculated 66.4 mg/dL (0.0-131.0)
== END | disposition home or self-care (01) ==
LOC: LABWHC1 08:47
PROVIDERS: ATTEND Internal Medicine Interventional Cardiology
DX: E78.2 Mixed hyperlipidemia (principal)
CPT/HCPCS: 36415; 80061; 84450; 84460